=== PATIENT | female | born 1990 | race African-American/Black ===

== ENCOUNTER 2017-09-18 18:54 | Emergency (ER) | payer MEDICAID | END 2017-09-18 19:15 | disposition left against medical advice (07) | LOC: MW.ED 18:54 | DX: Z53.21 Procedure and treatment not carried out due to patient leaving prior to being seen by health care provider (principal) ==

== ENCOUNTER 2017-12-10 10:03 | Emergency (ER) | payer MEDICAID, OTHER ==
[2017-12-10] MEDS ORDERED: Sodium Chloride 0.9% 2.5 ML Syringe FLUSH PRN (10:40)
[2017-12-10] MEDS ORDERED: Ondansetron 4 MG/2 ML SDV IVPUSH ONE (10:40)
[2017-12-10] MEDS ORDERED: Sodium Chloride 0.9% 1,000 ML IV ONE (10:40)
[2017-12-10] MEDS ORDERED: Sodium Chloride 0.9% 10 ML Syringe FLUSH PRN (10:40)
--- NOTE | 2017-12-10 10:52 | EDM.PDOC ---
ED HPI GENERAL MEDICAL PROBLEM - General Chief Complaint: Gastrointestinal Problem Stated Complaint: VOMITTING Time Seen by Provider: 12/10/17 10:41 Source of Information: Reports: Patient History Limitations: Reports: No Limitations - History of Present Illness INITIAL COMMENTS - FREE TEXT/NARRATIVE: HISTORY AND PHYSICAL: []27-year-old female presenting with nausea vomiting and diarrhea for the last 3 days History of Present Illness: []The patient reports that she has had diarrhea several times a day. Her last bouts of diarrhea today 3, vomiting 2. She dropped her Children off at school today and then presented to the emergency department. She feels that she has been running a fever on Sunday 3 days ago. She has not taken any medication for the nausea vomiting and diarrhea. However patient reports that she took plan B on the 11/06/17. Last time she took plan B she had to have a D&C completed. She denies having taken a home test recently. Review of Systems: As per history of present illness and below otherwise all systems reviewed and negative. Past medical history: As per history of present illness and as reviewed below otherwise noncontributory. Surgical history: As per history of present illness and as reviewed below otherwise noncontributory. Social history: No reported history of drug or alcohol abuse. Family history: As per history of present illness and as reviewed below otherwise noncontributory. Physical exam: Alert female who answers questions appropriately in full sentences without any shortness of breath. Skin is warm and dry. HEENT: Atraumatic, normocehpalic, pupils reactive, negative for conjunctival pallor or scleral icterus, mucous membranes dry, throat clear, neck supple, nontender, trachea midline. Lungs: Clear to auscultation, breath sounds equal bilaterally, chest non tender. Heart: S1S2, regular, negative for clicks, rubs, or JVD. Abdomen: Soft, nondistended, nontender. Negative for masses or hepatossplenmegaly. Negative for costovertebral tenderness. Pelvis: Stable nontender. Genitourinary: Deferred. Rectal: Deferred Extremities: Atraumatic, negative for cords or calf pain. Neurovascular unremarkable. Neuro: Awake, alert, oriented. Cranial nerves II through XII unremarkable. Cerebellum unremarkable. Motor and sensory unremarkable throughout. Exam nonfocal. Discussed this case with Noris Thomason, nurse school community relations coordinator. She is given reassurance about this case. If the patient requires further care may follow-up in the clinic in a week call for appointment. Have discussed this condition with the patient that no concerns were voiced by the APPAREL DESIGNER specialist inspector canned food reconditioning. We'll refer her to Noris Martines Diagnostics: [CBC CMP hCG UA] Therapeutics: []IV fluid Zofran Impression: []Viable Nausea vomiting Plan: []Discharge home Prescription for Zofran 4 mg tablets sent to [facility] per phone Definitive disposition and diagnosis as appropriate pending reevaluation and review of above. Onset: Gradual Duration: Day(s): (3) Location: Reports: Abdomen Quality: Reports: Same as Previous Episode Severity: Moderate Improves with: Reports: None Worsens with: Reports: None - Related Data Allergies Allergy/AdvReac Type Severity Reaction Status Date / Time No Known Allergies Allergy Verified 12/10/17 10:14 Home Meds: Home Meds . [No Known Home Meds] 12/10/17 [History] Past Medical History - Past Health History Medical/Surgical History: Denies Medical/Surgical History APPAREL DESIGNER History: Reports: , Spontaneous - Past Surgical History Female Surgical History: Reports: D&C Social & Family History - Family History Family Medical History: Noncontributory - Tobacco Use Smoking Status *Q: Never Smoker Second Hand Smoke Exposure: No - Caffeine Use Caffeine Use: Reports: Coffee, Soda, Tea - Recreational Drug Use Recreational Drug Use: No ED ROS GENERAL - Review of Systems Review Of Systems: ROS reveals no pertinent complaints other than HPI. ED EXAM, GI/ABD - Physical Exam Exam: See Below (see dictation) Course - Vital Signs Last Recorded V/S: Last Vital Signs Temp 36.6 C 12/10/17 12:10 Pulse 96 12/10/17 12:10 Resp 14 12/10/17 12:10 BP 120/57 L 12/10/17 12:10 Pulse Ox 98 12/10/17 12:10 - Orders/Labs/Meds Orders: Active Orders 24 hr Category Date Time Status CULTURE URINE [RM] Stat Lab 12/10/17 10:30 Ordered HCG QUANTITATIVE,SERUM [CHEM] Stat Lab 12/10/17 11:00 Received INFLUENZA A+B AG SCREEN [RM] Stat Lab 12/10/17 10:30 Ordered UA W/MICROSCOPIC [URIN] Stat Lab 12/10/17 10:30 Ordered Sodium Chloride 0.9% [Saline Flush] Med 12/10/17 10:40 Active 10 ml FLUSH ASDIRECTED PRN Sodium Chloride 0.9% [Saline Flush] Med 12/10/17 10:40 Active 2.5 ml FLUSH ASDIRECTED PRN Saline Lock Insert [OM.PC] Stat Oth 12/10/17 10:40 Ordered Medication Orders Sodium Chloride (Saline Flush) 10 ml FLUSH ASDIRECTED PRN PRN Reason: Keep Vein Open Last Admin: 12/10/17 11:03 Dose: 10 ml Sodium Chloride (Saline Flush) 2.5 ml FLUSH ASDIRECTED PRN PRN Reason: Keep Vein Open Last Admin: 12/10/17 11:03 Dose: 2.5 ml Labs: Laboratory Tests 12/10/17 12/10/17 12/10/17 Range/Units 10:30 10:30 11:00 WBC 11.71 H (4.0-11.0) K/uL RBC 4.38 (4.30-5.90) M/uL Hgb 12.2 (12.0-16.0) g/dL Hct 35.9 L (36.0-46.0) % MCV 82.0 (80.0-98.0) fL MCH 27.9 (27.0-32.0) pg MCHC 34.0 (31.0-37.0) g/dL RDW Std Deviation 36.7 (28.0-62.0) fl RDW Coeff of Alyssa 13 (11.0-15.0) % Plt Count 330 (150-400) K/uL MPV 10.40 (7.40-12.00) fL Neut % (Auto) 65.2 (48.0-80.0) % Lymph % (Auto) 26.2 (16.0-40.0) % [place] % (Auto) 7.0 (0.0-15.0) % Eos % (Auto) 1.3 (0.0-7.0) % Baso % (Auto) 0.3 (0.0-1.5) % Neut # (Auto) 7.6 H (1.4-5.7) K/uL Lymph # (Auto) 3.1 H (0.6-2.4) K/uL [place] # (Auto) 0.8 (0.0-0.8) K/uL Eos # (Auto) 0.2 (0.0-0.7) K/uL Baso # (Auto) 0.0 (0.0-0.1) K/uL Sodium (136-145) mmol/L Potassium (3.5-5.1) mmol/L Chloride (98-107) mmol/L Carbon Dioxide (21.0-32.0) mmol/L BUN (7.0-18.0) mg/dL Creatinine (0.6-1.0) mg/dL Est Cr Clr Drug Dosing mL/min Estimated GFR (MDRD) ml/min Glucose (74-106) mg/dL Calcium (8.5-10.1) mg/dL Total Bilirubin (0.2-1.0) mg/dL AST (15-37) IU/L ALT (14-63) IU/L Alkaline Phosphatase (46-116) U/L Total Protein (6.4-8.2) g/dL Albumin (3.4-5.0) g/dL Globulin (2.0-3.5) g/dL Albumin/Globulin Ratio (1.3-2.8) Urine Color YELLOW Urine Appearance CLEAR Urine pH 7.5 (5.0-8.0) Ur Specific [place] 1.010 (1.001-1.035) Urine Protein NEGATIVE (NEGATIVE) mg/dL Urine Glucose (UA) NEGATIVE (NEGATIVE) mg/dL Urine Ketones NEGATIVE (NEGATIVE) mg/dL Urine Occult Blood NEGATIVE (NEGATIVE) Urine Nitrite NEGATIVE (NEGATIVE) Urine Bilirubin NEGATIVE (NEGATIVE) Urine Urobilinogen 1.0 (<2.0) EU/dL Ur Leukocyte Esterase SMALL (NEGATIVE) Urine RBC 0-2 (0-2/HPF) Urine WBC 0-2 (0-5/HPF) Ur Epithelial Cells FEW (NONE-FEW) Urine Bacteria FEW (NEGATIVE) Urine HCG, Qual POSITIVE (NEGATIVE) 12/10/17 Range/Units 11:00 WBC (4.0-11.0) K/uL RBC (4.30-5.90) M/uL Hgb (12.0-16.0) g/dL Hct (36.0-46.0) % MCV (80.0-98.0) fL MCH (27.0-32.0) pg MCHC (31.0-37.0) g/dL RDW Std Deviation (28.0-62.0) fl RDW Coeff of Alyssa (11.0-15.0) % Plt Count (150-400) K/uL MPV (7.40-12.00) fL Neut % (Auto) (48.0-80.0) % Lymph % (Auto) (16.0-40.0) % [place] % (Auto) (0.0-15.0) % Eos % (Auto) (0.0-7.0) % Baso % (Auto) (0.0-1.5) % Neut # (Auto) (1.4-5.7) K/uL Lymph # (Auto) (0.6-2.4) K/uL [place] # (Auto) (0.0-0.8) K/uL Eos # (Auto) (0.0-0.7) K/uL Baso # (Auto) (0.0-0.1) K/uL Sodium 137 (136-145) mmol/L Potassium 3.6 (3.5-5.1) mmol/L Chloride 104 (98-107) mmol/L Carbon Dioxide 26.0 (21.0-32.0) mmol/L BUN 7 (7.0-18.0) mg/dL Creatinine 0.6 (0.6-1.0) mg/dL Est Cr Clr Drug Dosing 123.77 mL/min Estimated GFR (MDRD) > 60.0 ml/min Glucose 83 (74-106) mg/dL Calcium 8.8 (8.5-10.1) mg/dL Total Bilirubin 0.5 (0.2-1.0) mg/dL AST 22 (15-37) IU/L ALT 18 (14-63) IU/L Alkaline Phosphatase 53 (46-116) U/L Total Protein 7.6 (6.4-8.2) g/dL Albumin 3.8 (3.4-5.0) g/dL Globulin 3.8 H (2.0-3.5) g/dL Albumin/Globulin Ratio 1.0 L (1.3-2.8) Urine Color Urine Appearance Urine pH (5.0-8.0) Ur Specific [place] (1.001-1.035) Urine Protein (NEGATIVE) mg/dL Urine Glucose (UA) (NEGATIVE) mg/dL Urine Ketones (NEGATIVE) mg/dL Urine Occult Blood (NEGATIVE) Urine Nitrite (NEGATIVE) Urine Bilirubin (NEGATIVE) Urine Urobilinogen (<2.0) EU/dL Ur Leukocyte Esterase (NEGATIVE) Urine RBC (0-2/HPF) Urine WBC (0-5/HPF) Ur Epithelial Cells (NONE-FEW) Urine Bacteria (NEGATIVE) Urine HCG, Qual (NEGATIVE) Meds: Medications Generic Name Dose Route Start Last Admin Trade Name Freq PRN Reason Stop Dose Admin Sodium Chloride 10 ml 12/10/17 10:40 12/10/17 11:03 Saline Flush FLUSH 10 ml ASDIRECTED PRN Administration Keep Vein Open Sodium Chloride 2.5 ml 12/10/17 10:40 12/10/17 11:03 Saline Flush FLUSH 2.5 ml ASDIRECTED PRN Administration Keep Vein Open Discontinued Medications Generic Name Dose Route Start Last Admin Trade Name Freq PRN Reason Stop Dose Admin Sodium Chloride 1,000 mls @ 999 mls/hr 12/10/17 10:40 12/10/17 11:03 Normal Saline IV 12/10/17 11:40 999 mls/hr STAT ONE Administration Ondansetron HCl 4 mg 12/10/17 10:40 12/10/17 11:03 Zofran IVPUSH 12/10/17 10:41 4 mg ONETIME ONE Administration Departure - Departure Time of Disposition: 13:21 Disposition: Home, Self-Care 01 Condition: Good Clinical Impression: Nausea/vomiting in Qualifiers: Weeks of gestation: less than 8 weeks Qualified Code(s): Z3A.01 - Less than 8 weeks gestation of - Discharge Information Instructions: Nausea, Adult, Nausea and Vomiting, Adult, [id number], First Trimester of , [id number] Referrals: PCP,None [Primary Care Provider] - Forms: ED Department Discharge Additional Instructions: The following information is given to patients seen in the emergency department who are being discharged to home. This information is to outline your options for follow-up care. We provide all patients seen in our emergency department with a follow-up referral. The need for follow-up, as well as the timing and circumstances, are variable depending upon the specifics of your emergency department visit. If you don't have a primary care physician on staff, we will provide you with a referral. We always advise you to contact your personal physician following an emergency department visit to inform them of the circumstance of the visit and for follow-up with them and/or the need for any referrals to a consulting specialist. The emergency department will also refer you to a specialist when appropriate. This referral assures that you have the opportunity for followup care with a specialist. All of these measure are taken in an effort to provide you with optimal care, which includes your followup. Under all circumstances we always encourage you to contact your private physician who remains a resource for coordinating your care. When calling for followup care, please make the office aware that this follow-up is from your recent emergency room visit. If for any reason you are refused follow-up, please contact the [facility] emergency department at and asked to speak to the emergency department charge nurse. Given found to have a viable estimated gestational age by ultrasound is 5 weeks and 6 days EDC August 05, 2018 May follow-up with APPAREL DESIGNER of your choice Phone consultation was with Noris Thomason nurse school community relations coordinator My women's clinic [facility] [address] [place] [address] - My Orders Last 24 Hours: My Active Orders 12/10/17 10:30 CULTURE URINE [RM] Stat INFLUENZA A+B AG SCREEN [RM] Stat UA W/MICROSCOPIC [URIN] Stat 12/10/17 10:40 Sodium Chloride 0.9% [Saline Flush] 10 ml FLUSH ASDIRECTED PRN Sodium Chloride 0.9% [Saline Flush] 2.5 ml FLUSH ASDIRECTED PRN Saline Lock Insert [OM.PC] Stat 12/10/17 11:00 HCG QUANTITATIVE,SERUM [CHEM] Stat - Assessment/Plan Last 24 Hours: My Active Orders 12/10/17 10:30 CULTURE URINE [RM] Stat INFLUENZA A+B AG SCREEN [RM] Stat UA W/MICROSCOPIC [URIN] Stat 12/10/17 10:40 Sodium Chloride 0.9% [Saline Flush] 10 ml FLUSH ASDIRECTED PRN Sodium Chloride 0.9% [Saline Flush] 2.5 ml FLUSH ASDIRECTED PRN Saline Lock Insert [OM.PC] Stat 12/10/17 11:00 HCG QUANTITATIVE,SERUM [CHEM] Stat
[2017-12-10 11:50] LABS: CHLORIDE,CL 104 mmol/L (98-107); SODIUM,NA 137 mmol/L (136-145)
--- NOTE | 2017-12-10 12:37 | US ---
EXAMINATION: Transvaginal pelvic ultrasound HISTORY: Bleeding COMPARISON: None TECHNIQUE: Grayscale, color Doppler, and M-mode imaging obtained. FINDINGS: The uterus is normal in size, contour, and echogenicity. There is a small intrauterine gest ational sac identified. Yolk sac and pole noted. Early cardiac activity identified within the f etus. [place]-rump length measures 2.6 mm and the mean sac diameter is 1.6 cm. Estimated gestational ag e by ultrasound is 5 weeks and 6 days with an estimated date of delivery at 08/06/2018. Both the left and right ovaries otherwise appear normal. Normal color Doppler flow bilaterally. IMPRESSION: 1. Early intrauterine gestational sac noted with a pole and yolk sac. Early cardiac activity no drew.
[2017-12-10 13:38] VITALS: BP 99/46
== END 2017-12-10 13:39 | disposition home or self-care (01) ==
LOC: MW.ED 10:03
DX: O21.9 Vomiting of pregnancy, unspecified (principal); Z3A.01 Less than 8 weeks gestation of pregnancy
CPT/HCPCS: 36415; 76801; 80053; 81001; 81025; 84702; 85025; 87086; 87804; 96361; 96374; 99284; J2405; J7040; 99283

== ENCOUNTER 2017-12-16 07:31 | Emergency (ER) | payer SELFPAY ==
[2017-12-16] MEDS ORDERED: Sodium Chloride 0.9% 1,000 ML IV ONE (07:44)
[2017-12-16] MEDS ORDERED: Ondansetron 4 MG/2 ML SDV IVPUSH ONE (07:44)
--- NOTE | 2017-12-16 07:44 | EDM.PDOC ---
ED HPI GENERAL MEDICAL PROBLEM - General Chief Complaint: UNIT AIDE Problem Stated Complaint: BLEEDING/6 WEEKS Time Seen by Provider: 12/16/17 07:43 Source of Information: Reports: Patient - History of Present Illness INITIAL COMMENTS - FREE TEXT/NARRATIVE: HISTORY AND PHYSICAL: History of present illness: [Patient presents with vaginal bleeding/spotting in no fever nausea vomiting chills sweats no low back pain vaginal fluid leakage or discharge ] Review of systems: As per history of present illness and below otherwise all systems reviewed and negative. Past medical history: As per history of present illness and as reviewed below otherwise noncontributory. Surgical history: As per history of present illness and as reviewed below otherwise noncontributory. Social history: No reported history of drug or alcohol abuse. Family history: As per history of present illness and as reviewed below otherwise noncontributory. Physical exam: HEENT: Atraumatic, normocephalic, pupils reactive, negative for conjunctival pallor or scleral icterus, mucous membranes moist, throat clear, neck supple, nontender, trachea midline. Lungs: Clear to auscultation, breath sounds equal bilaterally, chest nontender. Heart: S1S2, regular, negative for clicks, rubs, or JVD. Abdomen: Soft, nondistended, nontender. Negative for masses or hepatosplenomegaly. Negative for costovertebral tenderness. Pelvis: Stable nontender. Genitourinary: No blood in the vaginal vault cervix is closed Rectal: Deferred. Extremities: Atraumatic, negative for cords or calf pain. Neurovascular unremarkable. Neuro: Awake, alert, oriented. Cranial nerves II through XII unremarkable. Cerebellum unremarkable. Motor and sensory unremarkable throughout. Exam nonfocal. Diagnostics: [CBC CMP UA hCG ABO type INR Ultrasound OB performed on 12/10/2017 on file with IUP noted Therapeutics: [1 L normal saline bolus ]Zofran 8 mg IV Macrobid Follow-up with OB next week Impression: [Threatened UTI 6 and 4/7 weeks weeks IUP by ultrasound on 12/10/2017 EDC 08/06/2018 by ultrasound ABO type -- O positive Cervix closed Definitive disposition and diagnosis as appropriate pending reevaluation and review of above. Bilateral Lower Abdomen Pain Score (Numeric/FACES): 8 - Related Data Allergies Allergy/AdvReac Type Severity Reaction Status Date / Time No Known Allergies Allergy Verified 12/10/17 10:14 Home Meds: Home Meds . [No Known Home Meds] 12/10/17 [History] Past Medical History - Past Health History Medical/Surgical History: Denies Medical/Surgical History UNIT AIDE History: Reports: , Spontaneous - Past Surgical History Female Surgical History: Reports: D&C Social & Family History - Family History Family Medical History: Noncontributory - Tobacco Use Smoking Status *Q: Never Smoker Second Hand Smoke Exposure: No - Caffeine Use Caffeine Use: Reports: Coffee, Soda, Tea - Recreational Drug Use Recreational Drug Use: No ED ROS GENERAL - Review of Systems Review Of Systems: ROS reveals no pertinent complaints other than HPI. ED EXAM, GENERAL - Physical Exam Exam: See Below Course - Vital Signs Last Recorded V/S: Last Vital Signs Temp 97.8 F 12/16/17 07:37 Pulse 95 12/16/17 07:37 Resp 18 12/16/17 07:37 BP 110/70 12/16/17 07:37 Pulse Ox 100 12/16/17 07:37 - Orders/Labs/Meds Orders: Active Orders 24 hr Category Date Time Status CULTURE URINE [RM] Stat Lab 12/16/17 09:00 Ordered UA W/MICROSCOPIC [URIN] Stat Lab 12/16/17 07:41 Ordered Labs: Laboratory Tests 12/16/17 12/16/17 12/16/17 Range/Units 07:41 07:47 07:47 WBC 12.14 H (4.0-11.0) K/uL RBC 4.33 (4.30-5.90) M/uL Hgb 12.2 (12.0-16.0) g/dL Hct 34.9 L (36.0-46.0) % MCV 80.6 (80.0-98.0) fL MCH 28.2 (27.0-32.0) pg MCHC 35.0 (31.0-37.0) g/dL RDW Std Deviation 37.6 (28.0-62.0) fl RDW Coeff of Alyssa 13 (11.0-15.0) % Plt Count 352 (150-400) K/uL MPV 10.10 (7.40-12.00) fL Neut % (Auto) 69.5 (48.0-80.0) % Lymph % (Auto) 22.2 (16.0-40.0) % [place] % (Auto) 6.8 (0.0-15.0) % Eos % (Auto) 0.9 (0.0-7.0) % Baso % (Auto) 0.6 (0.0-1.5) % Neut # (Auto) 8.4 H (1.4-5.7) K/uL Lymph # (Auto) 2.7 H (0.6-2.4) K/uL [place] # (Auto) 0.8 (0.0-0.8) K/uL Eos # (Auto) 0.1 (0.0-0.7) K/uL Baso # (Auto) 0.1 (0.0-0.1) K/uL Nucleated RBC % 0.0 /100WBC Nucleated RBCs # 0 K/uL INR Sodium 134 L (136-145) mmol/L Potassium 3.5 (3.5-5.1) mmol/L Chloride 98 (98-107) mmol/L Carbon Dioxide 26.1 (21.0-32.0) mmol/L BUN 11 (7.0-18.0) mg/dL Creatinine 0.7 (0.6-1.0) mg/dL Est Cr Clr Drug Dosing 106.09 mL/min Estimated GFR (MDRD) > 60.0 ml/min Glucose 86 (74-106) mg/dL Calcium 9.0 (8.5-10.1) mg/dL Total Bilirubin 0.5 (0.2-1.0) mg/dL AST 13 L (15-37) IU/L ALT 14 (14-63) IU/L Alkaline Phosphatase 55 (46-116) U/L Total Protein 7.5 (6.4-8.2) g/dL Albumin 3.9 (3.4-5.0) g/dL Globulin 3.6 H (2.0-3.5) g/dL Albumin/Globulin Ratio 1.1 L (1.3-2.8) HCG, Quant 63007.0 mIU/mL Urine Color YELLOW Urine Appearance CLEAR Urine pH 6.0 (5.0-8.0) Ur Specific [place] >= 1.030 (1.001-1.035) Urine Protein TRACE (NEGATIVE) mg/dL Urine Glucose (UA) NEGATIVE (NEGATIVE) mg/dL Urine Ketones 15 H (NEGATIVE) mg/dL Urine Occult Blood SMALL H (NEGATIVE) Urine Nitrite NEGATIVE (NEGATIVE) Urine Bilirubin SMALL H (NEGATIVE) Urine Ictotest NEGATIVE Urine Urobilinogen 0.2 (<2.0) EU/dL Ur Leukocyte Esterase SMALL (NEGATIVE) Urine RBC 1-3 (0-2/HPF) Urine WBC 18-20 (0-5/HPF) Ur Epithelial Cells MODERATE (NONE-FEW) Urine Bacteria 1+ H (NEGATIVE) Urine Mucus MODERATE (NONE-MOD) Blood Type 12/16/17 12/16/17 Range/Units 07:47 07:47 WBC (4.0-11.0) K/uL RBC (4.30-5.90) M/uL Hgb (12.0-16.0) g/dL Hct (36.0-46.0) % MCV (80.0-98.0) fL MCH (27.0-32.0) pg MCHC (31.0-37.0) g/dL RDW Std Deviation (28.0-62.0) fl RDW Coeff of Alyssa (11.0-15.0) % Plt Count (150-400) K/uL MPV (7.40-12.00) fL Neut % (Auto) (48.0-80.0) % Lymph % (Auto) (16.0-40.0) % [place] % (Auto) (0.0-15.0) % Eos % (Auto) (0.0-7.0) % Baso % (Auto) (0.0-1.5) % Neut # (Auto) (1.4-5.7) K/uL Lymph # (Auto) (0.6-2.4) K/uL [place] # (Auto) (0.0-0.8) K/uL Eos # (Auto) (0.0-0.7) K/uL Baso # (Auto) (0.0-0.1) K/uL Nucleated RBC % /100WBC Nucleated RBCs # K/uL INR 0.96 Sodium (136-145) mmol/L Potassium (3.5-5.1) mmol/L Chloride (98-107) mmol/L Carbon Dioxide (21.0-32.0) mmol/L BUN (7.0-18.0) mg/dL Creatinine (0.6-1.0) mg/dL Est Cr Clr Drug Dosing mL/min Estimated GFR (MDRD) ml/min Glucose (74-106) mg/dL Calcium (8.5-10.1) mg/dL Total Bilirubin (0.2-1.0) mg/dL AST (15-37) IU/L ALT (14-63) IU/L Alkaline Phosphatase (46-116) U/L Total Protein (6.4-8.2) g/dL Albumin (3.4-5.0) g/dL Globulin (2.0-3.5) g/dL Albumin/Globulin Ratio (1.3-2.8) HCG, Quant mIU/mL Urine Color Urine Appearance Urine pH (5.0-8.0) Ur Specific [place] (1.001-1.035) Urine Protein (NEGATIVE) mg/dL Urine Glucose (UA) (NEGATIVE) mg/dL Urine Ketones (NEGATIVE) mg/dL Urine Occult Blood (NEGATIVE) Urine Nitrite (NEGATIVE) Urine Bilirubin (NEGATIVE) Urine Ictotest Urine Urobilinogen (<2.0) EU/dL Ur Leukocyte Esterase (NEGATIVE) Urine RBC (0-2/HPF) Urine WBC (0-5/HPF) Ur Epithelial Cells (NONE-FEW) Urine Bacteria (NEGATIVE) Urine Mucus (NONE-MOD) Blood Type O POSITIVE Meds: Medications Discontinued Medications Generic Name Dose Route Start Last Admin Trade Name Freq PRN Reason Stop Dose Admin Sodium Chloride 1,000 mls @ 999 mls/hr 12/16/17 07:44 12/16/17 08:02 Normal Saline IV 12/16/17 08:44 999 mls/hr STAT ONE Administration Ondansetron HCl 8 mg 12/16/17 07:44 12/16/17 08:01 Zofran IVPUSH 12/16/17 07:45 8 mg ONETIME ONE Administration Departure - Departure Time of Disposition: 09:21 Disposition: Home, Self-Care 01 Condition: Good Clinical Impression: Threatened , UTI (urinary tract infection) - Discharge Information Referrals: PCP,None [Primary Care Provider] - Forms: ED Department Discharge Additional Instructions: Medication as prescribed Continue vitamins Return if symptoms persist or worsen ER referral for OB follow-up and establish care next week [facility] [address] [address] The following information is given to patients seen in the emergency department who are being discharged to home. This information is to outline your options for follow-up care. We provide all patients seen in our emergency department with a follow-up referral. The need for follow-up, as well as the timing and circumstances, are variable depending upon the specifics of your emergency department visit. If you don't have a primary care physician on staff, we will provide you with a referral. We always advise you to contact your personal physician following an emergency department visit to inform them of the circumstance of the visit and for follow-up with them and/or the need for any referrals to a consulting specialist. The emergency department will also refer you to a specialist when appropriate. This referral assures that you have the opportunity for follow-up care with a specialist. All of these measure are taken in an effort to provide you with optimal care, which includes your follow-up. Under all circumstances we always encourage you to contact your private physician who remains a resource for coordinating your care. When calling for follow-up care, please make the office aware that this follow-up is from your recent emergency room visit. If for any reason you are refused follow-up, please contact the [facility] emergency department at and asked to speak to the emergency department charge nurse. l - My Orders Last 24 Hours: My Active Orders 12/16/17 07:41 UA W/MICROSCOPIC [URIN] Stat 12/16/17 09:00 CULTURE URINE [RM] Stat - Assessment/Plan Last 24 Hours: My Active Orders 12/16/17 07:41 UA W/MICROSCOPIC [URIN] Stat 12/16/17 09:00 CULTURE URINE [RM] Stat
[2017-12-16 09:02] LABS: CHLORIDE,CL 98 mmol/L (98-107); SODIUM,NA 134 mmol/L (136-145)
[2017-12-16 11:07] VITALS: BP 105/62
== END 2017-12-16 11:13 | disposition home or self-care (01) ==
LOC: MW.ED 07:31
DX: O20.0 Threatened abortion (principal); O23.41 Unspecified infection of urinary tract in pregnancy, first trimester; Z3A.01 Less than 8 weeks gestation of pregnancy
CPT/HCPCS: 36415; 80053; 81001; 84702; 85025; 85610; 86900; 86901; 87086; 96361; 96374; 99284; J2405; J7040

== ENCOUNTER 2017-12-20 16:25 | Emergency (ER) | payer MEDICAID ==
--- NOTE | 2017-12-20 17:05 | EDM.PDOC ---
ED HPI GENERAL MEDICAL PROBLEM - General Chief Complaint: RECHARGER Problem Stated Complaint: PT BLEEDING AND 7WKS Time Seen by Provider: 12/20/17 16:44 Source of Information: Reports: Patient History Limitations: Reports: No Limitations - History of Present Illness INITIAL COMMENTS - FREE TEXT/NARRATIVE: HISTORY AND PHYSICAL: History of present illness: Patient is a 27-year-old female who presents to the emergency room today with complaints of vaginal bleeding, low back cramping, and nausea during . Reports that for the past week she has had increased bleeding, cramping and low back pain. Was seen in our ED a week ago with similar complaints and was concerned that she had threatened miscarriage. Review of systems: As per history of present illness and below otherwise all systems reviewed and negative. Past medical history: As per history of present illness and as reviewed below otherwise noncontributory. Surgical history: As per history of present illness and as reviewed below otherwise noncontributory. Social history: No reported history of drug or alcohol abuse. Family history: As per history of present illness and as reviewed below otherwise noncontributory. Physical exam: General: Well-developed and well-nourished 27-year-old -[place] female. Alert and oriented. Nontoxic appearing and in no acute distress. HEENT: Atraumatic, normocephalic, pupils equal and reactive bilaterally, negative for conjunctival pallor or scleral icterus, mucous membranes moist, throat clear, neck supple, nontender, trachea midline. No drooling or trismus noted. No meningeal signs Lungs: Clear to auscultation, breath sounds equal bilaterally, chest nontender. Heart: S1S2, regular rate and rhythm without overt murmur Abdomen: Soft, nondistended, mild low abdominal tenderness with palpation. Negative for masses or hepatosplenomegaly. Negative for costovertebral tenderness. Pelvis: Stable nontender. Genitourinary: This was done with a atm mechanic at the bedside. A manual exam was done and the cervix is closed. Patient tolerated well. There was no blood noted on the glove. Rectal: Deferred. Skin: Intact, warm, dry. No lesions or rashes noted. Extremities: Atraumatic, negative for cords or calf pain. Neurovascular unremarkable. Neuro: Awake, alert, oriented. Cranial nerves II through XII unremarkable. Cerebellum unremarkable. Motor and sensory unremarkable throughout. Exam nonfocal. Notes: 12/10/2017: Patient had taken Plan B on 11/06/2017 to prevent . She states the last time she had taken Plan B she needed a D&C. Patient had a confirmed , viable IUP via ultrasound. Patient was reevaluated in our emergency room on 12/17/2007 for vaginal bleeding. During this time she was evaluated and informed she may be having a miscarriage and encouraged to follow up with Noris Thomason. Patient states that she has had increased bleeding and cramping since her last ER visit. 12/16/2017 Labs: ABO Type - O positive, HCG Quant 61,891 12/20/2017: OB ultrasound shows no heart motion which is consistent with a failed early . There is a trace amount of subchorionic hemorrhage noted. Current HCG Quant 101,803. Cervix is closed upon my vaginal exam. Dr Hernandez was called and is agreeable to seeing her tomorrow for follow up and re- evaluation. VSS. Patient will be discharged to home with education. Diagnostics: CBC, CMP, Quantative HCG, UA, OB U/S Therapeutics: [] Impression: Threatened Miscarriage Plan: 1. Pelvic rest until cleared by your OBGYN (no tampons, intercourse, etc...) 2. Tylenol as needed for pain management. 3. Dr Carter was called and he is aware of your case, and you can call to set up an appointment to be seen tomorrow or Sunday. Return to the ED as needed and as discussed. Definitive disposition and diagnosis as appropriate pending reevaluation and review of above. - Related Data Allergies Allergy/AdvReac Type Severity Reaction Status Date / Time No Known Allergies Allergy Verified 12/20/17 16:43 Home Meds: Home Meds Ondansetron [Zofran ODT] 4 mg PO ASDIRECTED PRN 12/20/17 [History] Past Medical History - Past Health History Medical/Surgical History: Denies Medical/Surgical History RECHARGER History: Reports: , Spontaneous - Past Surgical History Female Surgical History: Reports: D&C Social & Family History - Family History Family Medical History: Noncontributory - Tobacco Use Smoking Status *Q: Never Smoker Second Hand Smoke Exposure: No - Caffeine Use Caffeine Use: Reports: None - Recreational Drug Use Recreational Drug Use: No ED ROS GENERAL - Review of Systems Review Of Systems: ROS reveals no pertinent complaints other than HPI. ED EXAM - Physical Exam Exam: See Below (See dictation) Course - Vital Signs Last Recorded V/S: Last Vital Signs Temp 97.8 F 12/20/17 16:39 Pulse 109 H 12/20/17 16:39 Resp 20 12/20/17 16:39 BP 99/56 L 12/20/17 16:39 Pulse Ox 99 12/20/17 16:39 - Orders/Labs/Meds Orders: Active Orders 24 hr Category Date Time Status OB Transvaginal [US] Stat Exams 12/20/17 16:51 Taken UA W/MICROSCOPIC [URIN] Stat Lab 12/20/17 16:44 Ordered Labs: Laboratory Tests 12/20/17 12/20/17 12/20/17 Range/Units 16:59 16:59 16:59 WBC 13.79 H (4.0-11.0) K/uL RBC 4.66 (4.30-5.90) M/uL Hgb 13.1 (12.0-16.0) g/dL Hct 38.0 (36.0-46.0) % MCV 81.5 (80.0-98.0) fL MCH 28.1 (27.0-32.0) pg MCHC 34.5 (31.0-37.0) g/dL RDW Std Deviation 39.5 (28.0-62.0) fl RDW Coeff of Alyssa 13 (11.0-15.0) % Plt Count 348 (150-400) K/uL MPV 9.60 (7.40-12.00) fL Neut % (Auto) 67.3 (48.0-80.0) % Lymph % (Auto) 26.4 (16.0-40.0) % Churchill % (Auto) 5.1 (0.0-15.0) % Eos % (Auto) 0.9 (0.0-7.0) % Baso % (Auto) 0.3 (0.0-1.5) % Neut # (Auto) 9.3 H (1.4-5.7) K/uL Lymph # (Auto) 3.6 H (0.6-2.4) K/uL Churchill # (Auto) 0.7 (0.0-0.8) K/uL Eos # (Auto) 0.1 (0.0-0.7) K/uL Baso # (Auto) 0.0 (0.0-0.1) K/uL Nucleated RBC % 0.0 /100WBC Nucleated RBCs # 0 K/uL Sodium 136 (136-145) mmol/L Potassium 3.7 (3.5-5.1) mmol/L Chloride 101 (98-107) mmol/L Carbon Dioxide 25.4 (21.0-32.0) mmol/L BUN 6 L (7.0-18.0) mg/dL Creatinine 0.7 (0.6-1.0) mg/dL Est Cr Clr Drug Dosing TNP Estimated GFR (MDRD) > 60.0 ml/min Glucose 90 (74-106) mg/dL Calcium 9.4 (8.5-10.1) mg/dL Total Bilirubin 0.5 (0.2-1.0) mg/dL AST 18 (15-37) IU/L ALT 16 (14-63) IU/L Alkaline Phosphatase 62 (46-116) U/L Total Protein 8.0 (6.4-8.2) g/dL Albumin 4.0 (3.4-5.0) g/dL Globulin 4.0 H (2.0-3.5) g/dL Albumin/Globulin Ratio 1.0 L (1.3-2.8) HCG, Quant 169693.0 mIU/mL Departure - Departure Time of Disposition: 19:08 Disposition: Home, Self-Care 01 Clinical Impression: Threatened miscarriage in early - Discharge Information Instructions: Threatened Miscarriage, [id number] Referrals: PCP,None [Primary Care Provider] - Forms: ED Department Discharge Additional Instructions: The following information is given to patients seen in the emergency department who are being discharged to home. This information is to outline your options for follow-up care. We provide all patients seen in our emergency department with a follow-up referral. The need for follow-up, as well as the timing and circumstances, are variable depending upon the specifics of your emergency department visit. If you don't have a primary care physician on staff, we will provide you with a referral. We always advise you to contact your personal physician following an emergency department visit to inform them of the circumstance of the visit and for follow-up with them and/or the need for any referrals to a consulting specialist. The emergency department will also refer you to a specialist when appropriate. This referral assures that you have the opportunity for follow-up care with a specialist. All of these measure are taken in an effort to provide you with optimal care, which includes your follow-up. Under all circumstances we always encourage you to contact your private physician who remains a resource for coordinating your care. When calling for follow-up care, please make the office aware that this follow-up is from your recent emergency room visit. If for any reason you are refused follow-up, please contact the [facility] Emergency Department at and asked to speak to the emergency department charge nurse. [facility] OB Care: Dr Carter or Noris Klein [address] [place] [id number] 1. Pelvic rest until cleared by your OBGYN (no tampons, intercourse, etc...) 2. Tylenol as needed for pain management. 3. Dr Carter was called and he is aware of your case, and you can call to set up an appointment to be seen tomorrow or Sunday. Return to the ED as needed and as discussed. - My Orders Last 24 Hours: My Active Orders 12/20/17 16:44 UA W/MICROSCOPIC [URIN] Stat 12/20/17 16:51 OB Transvaginal [US] Stat - Assessment/Plan Last 24 Hours: My Active Orders 12/20/17 16:44 UA W/MICROSCOPIC [URIN] Stat 12/20/17 16:51 OB Transvaginal [US] Stat
[2017-12-20 17:42] LABS: CHLORIDE,CL 101 mmol/L (98-107); SODIUM,NA 136 mmol/L (136-145)
[2017-12-20 19:24] VITALS: BP 99/61
--- NOTE | 2017-12-21 14:27 | US ---
EXAM DATE: 12/20/17 PATIENT'S AGE: 27 Patient: GONZALEZ HUERTA Facility: [place], [place] Site . Site : 1990 Study: OB Pelvis [id number]/[id number] 5:39:05 PM Ordering Physician: Doctor Gonzalez Final Report: INDICATION: Vaginal spotting with pelvic cramping TECHNIQUE: Ultrasound OB pelvis transvaginal. Real time casey scale imaging of the pelvis was performed. COMPARISON: 12/10/2017 FINDINGS: Gestational Sac: Sonographic imaging demonstrates a single intrauterine gestation with a normal appearance. A trace subchorionic hemorrhage is noted. The amount of fluid within the sac appears appropriate for gestational age. Fetus: No heart motion is identified by the media marketing manager. The embryo`s crown rump length measurement of 0.6 mm corresponds to a gestational age of 6 weeks, 4 days. There is a normal appearing yolk sac. There are no gross abnormalities noted within the embryo at this early state of development. Placenta: The placenta has not yet developed. Pelvis: The visualized cervix is closed. The visualized myometrium appears normal. The ovaries are of normal size. No significant ascites noted. IMPRESSION: 1. No heart motion is identified by the media marketing manager. Findings are consistent with failed early . 2. A trace subchorionic hemorrhage is noted. Dictated by Raul Gonsalez MD @ 12/20/2017 6:16:50 PM Dictated by: Raul Gonsalez MD @ 12/20/2017 18:17:04 (Electronic Signature) MTDD
== END 2017-12-20 19:28 | disposition home or self-care (01) ==
LOC: MW.ED 16:25
DX: O20.0 Threatened abortion (principal); Z3A.01 Less than 8 weeks gestation of pregnancy
CPT/HCPCS: 36415; 76817; 76817-26; 80053; 84702; 85025; 99283; 99284-25

== ENCOUNTER 2017-12-25 09:09 | Day surgery (SDC) | payer MEDICAID ==
[~2017-12-25 09:09] MED LIST: Lactated Ringers 1,000 ML IV SCH
[2017-12-25] MEDS ORDERED: Methylergonovine 0.2 MG/1 ML Amp ONE (10:16)
[2017-12-25] MEDS ORDERED: Misoprostol 200 MCG Tab ONE (10:16)
[2017-12-25] MEDS ORDERED: Lidocaine 2% 5 ML SDV ONE (10:20)
[2017-12-25] MEDS ORDERED: fentaNYL 100 MCG/2 ML SDV ONE (10:21)
[2017-12-25] MEDS ORDERED: Propofol 200 MG/20 ML SDV ONE (10:21)
[2017-12-25] MEDS ORDERED: Midazolam 1 MG/ML 2 ML SDV ONE (10:21)
--- NOTE | 2017-12-25 10:30 | PCM.PREANE ---
Preanesthetic Assessment - Anesthesia/Transfusion/Family Hx Anesthesia History: Prior Anesthesia Without Reaction Family History of Anesthesia Reaction: No Transfusion History: No Prior Transfusion(s) Intubation History: Unknown - Review of Systems General: No Symptoms Pulmonary: No Symptoms Cardiovascular: No Symptoms Gastrointestinal: No Symptoms Neurological: No Symptoms Other: Reports: None - Physical Assessment Height: 1.63 m Weight: 64.864 kg ASA Class: 2 Mental Status: Alert & Oriented x3 Airway Class: Mallampati = 2 Dentition: Reports: Normal Dentition Thyro-Mental Finger Breadths: 3 Mouth Opening Finger Breadths: 3 ROM/Head Extension: Full Lungs: Clear to Auscultation, Normal Respiratory Effort Cardiovascular: Regular Rate, Regular Rhythm - Lab Values: Laboratory Last Values Hgb 13.7 g/dL (12.0-16.0) 12/25/17 09:24 Hct 38.6 % (36.0-46.0) 12/25/17 09:24 - Allergies Allergies/Adverse Reactions: Allergies Allergy/AdvReac Type Severity Reaction Status Date / Time No Known Allergies Allergy Verified 12/24/17 12:20 - Blood Blood Available: No - Anesthesia Plan Pre-Op Medication Ordered: None - Acknowledgements Anesthesia Type Planned: General Anesthesia Pt an Appropriate Candidate for the Planned Anesthesia: Yes Alternatives and Risks of Anesthesia Discussed w Pt/Guardian: Yes Pt/Guardian Understands and Agrees with Anesthesia Plan: Yes PreAnesthesia Questionnaire - Past Health History Medical/Surgical History: Denies 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: , 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 Hematologic History: Reports: Anemia - Past Surgical History Head Surgeries/Procedures: Reports: None Female Surgical History: Reports: D&C (x2) - SUBSTANCE USE Smoking Status *Q: Never Smoker Tobacco Use Within Last Twelve Months: No Second Hand Smoke Exposure: No Recreational Drug Use History: No - HOME MEDS Home Medications: Home Meds Ondansetron [Zofran ODT] 4 mg PO ASDIRECTED PRN 12/20/17 [History] - CURRENT (IN HOUSE) MEDS Current Meds: Current Medications Lactated Ringer's (Ringers, Lactated) 1,000 mls @ 100 mls/hr IV ASDIRECTED ARELY Discontinued Medications Fentanyl (Sublimaze) Confirm Administered Dose 200 mcg .ROUTE .STK-MED ONE Stop: 12/25/17 10:22 Lidocaine (Xylocaine-Mpf 2%) Confirm Administered Dose 10 ml .ROUTE .STK-MED ONE Stop: 12/25/17 10:21 Methylergonovine Maleate (Methergine) Confirm Administered Dose 0.2 mg .ROUTE .STK-MED ONE Stop: 12/25/17 10:17 Midazolam HCl (Versed 1 Mg/Ml) Confirm Administered Dose 2 mg .ROUTE .STK-MED ONE Stop: 12/25/17 10:22 Misoprostol (Cytotec) Confirm Administered Dose 1,000 mcg .ROUTE .STK-MED ONE Stop: 12/25/17 10:17 Propofol (Diprivan 20 Ml) Confirm Administered Dose 400 mg .ROUTE .STK-MED ONE Stop: 12/25/17 10:22
[2017-12-25] MEDS ORDERED: Succinylcholine 200 MG/10 ML MDV ONE (13:19)
[2017-12-25] MEDS ORDERED: Acetaminophen/oxyCODONE 325-5 MG Tab PO PRN ×2 (13:31)
[2017-12-25] MEDS ORDERED: Ketorolac 30 MG/ML SDV IVPUSH ONE (13:31)
[2017-12-25] MEDS ORDERED: Promethazine 25 MG/ML SDV IM PRN (13:31)
[2017-12-25] MEDS ORDERED: Ketorolac 30 MG/ML SDV IVPUSH PRN (13:31)
[2017-12-25] MEDS ORDERED: Ondansetron 4 MG/2 ML SDV IVPUSH PRN (13:31)
[2017-12-25] MEDS ORDERED: Morphine 4 MG/ML Syringe IVPUSH PRN (13:31)
--- NOTE | 2017-12-25 13:34 | PCM.OPNOTE ---
- General Post-Op/Procedure Note Date of Surgery/Procedure: 12/25/17 Operative Procedure(s): D&E Findings: POC Pre Op Diagnosis: Blighted ovum Post-Op Diagnosis: Same Primary Surgeon: Marc Carter EBL in mLs: 100 Complications: None Condition: Good Free Text/Narrative:: Intake & Output 12/24/17 12/25/17 12/25/17 22:59 06:59 14:59 Output Total 100 Balance -100
--- NOTE | 2017-12-25 13:35 | PCM.DCSUM1 ---
Discharge Summary - Discharge Data Discharge Date: 12/25/17 Discharge Disposition: Home, Self-Care 01 Condition: Good - Patient Summary/Data Operative Procedure(s) Performed: D&E - Patient Instructions Diet: Usual Diet as Tolerated Activity: As Tolerated Driving: Do Not Drive Showering/Bathing: May Shower Notify Provider of: Fever, Increased Pain, Nausea and/or Vomiting - Discharge Plan Home Medications: Home Meds Ondansetron [Zofran ODT] 4 mg PO ASDIRECTED PRN 12/20/17 [History] - General Info Date of Service: 12/25/17 Functional Status: Reports: Pain Controlled - Review of Systems General: Reports: No Symptoms HEENT: Reports: No Symptoms Pulmonary: Reports: No Symptoms Cardiovascular: Reports: No Symptoms Gastrointestinal: Reports: No Symptoms Genitourinary: Reports: No Symptoms Musculoskeletal: Reports: No Symptoms Skin: Reports: No Symptoms Neurological: Reports: No Symptoms Psychiatric: Reports: No Symptoms - Patient Data Vitals - Most Recent: Last Vital Signs Temp 37.2 C 12/25/17 10:34 Pulse 97 12/25/17 10:34 Resp 16 12/25/17 10:34 BP 127/74 12/25/17 10:34 Pulse Ox 98 12/25/17 10:34 Weight - Most Recent: 64.864 kg I&O - Last 24 hours: Intake & Output 12/24/17 12/25/17 12/25/17 22:59 06:59 14:59 Output Total 100 Balance -100 Lab Results - Last 24 hrs: Laboratory Results - last 24 hr 12/25/17 12/25/17 Range/Units 09:24 09:24 Hgb 13.7 (12.0-16.0) g/dL Hct 38.6 (36.0-46.0) % Blood Type O POSITIVE Antibody Screen NEGATIVE Med Orders - Current: Current Medications Lactated Ringer's (Ringers, Lactated) 1,000 mls @ 100 mls/hr IV ASDIRECTED ARELY Last Admin: 12/25/17 10:33 Dose: 100 mls/hr Ketorolac Tromethamine (Toradol) 30 mg IVPUSH ONETIME ONE Stop: 12/25/17 13:32 Ketorolac Tromethamine (Toradol) 30 mg IVPUSH Q6H PRN PRN Reason: Pain (severe 7-10) Stop: 12/30/17 13:31 Morphine Sulfate (Morphine) 4 mg IVPUSH Q2H PRN PRN Reason: Pain (severe 7-10) Ondansetron HCl (Zofran) 4 mg IVPUSH Q6H PRN PRN Reason: Nausea/Vomiting Oxycodone/Acetaminophen (Percocet 325-5 Mg) 1 tab PO Q4H PRN PRN Reason: Pain (moderate 4-6) Oxycodone/Acetaminophen (Percocet 325-5 Mg) 2 tab PO Q4H PRN PRN Reason: Pain (moderate 4-6) Promethazine HCl (Phenergan) 25 mg IM Q6H PRN PRN Reason: Nausea/Vomiting Discontinued Medications Fentanyl (Sublimaze) Confirm Administered Dose 200 mcg .ROUTE .STK-MED ONE Stop: 12/25/17 10:22 Lidocaine (Xylocaine-Mpf 2%) Confirm Administered Dose 10 ml .ROUTE .STK-MED ONE Stop: 12/25/17 10:21 Methylergonovine Maleate (Methergine) Confirm Administered Dose 0.2 mg .ROUTE .STK-MED ONE Stop: 12/25/17 10:17 Midazolam HCl (Versed 1 Mg/Ml) Confirm Administered Dose 2 mg .ROUTE .STK-MED ONE Stop: 12/25/17 10:22 Misoprostol (Cytotec) Confirm Administered Dose 1,000 mcg .ROUTE .STK-MED ONE Stop: 12/25/17 10:17 Propofol (Diprivan 20 Ml) Confirm Administered Dose 400 mg .ROUTE .STK-MED ONE Stop: 12/25/17 10:22 Succinylcholine Chloride (Quelicin) Confirm Administered Dose 200 mg .ROUTE .STK -MED ONE Stop: 12/25/17 13:20 - Exam General: Reports: Alert, Oriented HEENT: Reports: Pupils Equal, Pupils Reactive, EOMI, Mucous Membr. Moist/[place] Neck: Reports: Supple Lungs: Reports: Clear to Auscultation, Normal Respiratory Effort Cardiovascular: Reports: Regular Rate, Regular Rhythm GI/Abdominal Exam: Normal Bowel Sounds, Soft, Non-Tender, No Organomegaly, No Distention, No Abnormal Bruit, No Mass, Pelvis Stable (Female) Exam: Normal External Exam, Normal Speculum Exam, Normal Bimanual Exam Rectal (Female) Exam: Normal Exam, Normal Rectal Tone Back Exam: Reports: Normal Inspection, Full Range of Motion Extremities: Normal Inspection, Normal Range of Motion, Non-Tender, No Pedal Edema, Normal Capillary Refill Skin: Reports: Warm, Dry, Intact Wound/Incisions: Reports: Healing Well Neurological: Reports: No New Focal Deficit Psy/Mental Status: Reports: Alert, Normal Affect, Normal Mood
[2017-12-25] MEDS ORDERED: fentaNYL 100 MCG/2 ML SDV IVPUSH PRN (13:48)
--- NOTE | 2017-12-25 14:16 | OR ---
SURGEON: Marc Carter MD DATE OF PROCEDURE: 12/25/2017 PREOPERATIVE DIAGNOSIS: Blighted ovum. POSTOPERATIVE DIAGNOSIS: Blighted ovum. OPERATION PERFORMED: Dilatation and evacuation. ANTHROPOLOGY DEPARTMENT CHAIR: OR tech. ANESTHESIA: General by Dr. Emery Ponce and Dr. Galicia. ESTIMATED BLOOD LOSS: 100 mL. COMPLICATIONS: None. FINDINGS: Products of conception. INDICATION FOR SURGERY: The patient had repeated ultrasound, which shows gestational sacs with no pole, and declining beta HCG SONDRA. The patient is admitted for elective D and E. PROCEDURE IN DETAIL: The patient was brought to the OR, properly identified and after adequate level of anesthesia, the patient was placed in lithotomy position, prepped and draped in sterile fashion as usual, and straight catheter was used to empty the bladder and then the cervix was grabbed with the stabilizer, and then sequentially dilated to accommodate #8 cannula. The cannula was placed in the endometrial cavity. The endometrial cavity evacuated completely in uniformity from all products of conception. Once this diet done, the suction was stopped and the cannula removed and the procedure ended. Estimated blood loss is about 100 mL. Complication is none. The patient tolerated the procedure well and went to recovery room in stable general condition. CHRISTOPH / CARLOS /[id number]
[2017-12-25 15:45] VITALS: BP 107/73
== END 2017-12-25 15:20 | disposition home or self-care (01) ==
LOC: MW.SDS 09:09
PROVIDERS: ATTEND Obstetrics & Gynecology
DX: O02.0 Blighted ovum and nonhydatidiform mole (principal); O43.891 Other placental disorders, first trimester
CPT/HCPCS: 36415; 59820; 85014; 85018; 86850; 86900; 86901; 88305; J0330; J2250; J3010; J7120; A9270-GY; J2210; J2704

== ENCOUNTER 2018-03-30 09:13 | Emergency (ER) | payer MEDICAID ==
--- NOTE | 2018-03-30 10:28 | EDM.PDOC ---
ED HPI GENERAL MEDICAL PROBLEM - General Chief Complaint: Genitourinary Problem Stated Complaint: ITCHING IN RECTAL AREA Time Seen by Provider: 03/30/18 09:24 Source of Information: Reports: Patient History Limitations: Reports: No Limitations - History of Present Illness INITIAL COMMENTS - FREE TEXT/NARRATIVE: History of present illness: []Patient was treated with antibiotics recently for dental infection and has now developed vaginal and rectal itching. She has been taking Monistat which has has helped with vaginal discharge but itching continues. Review of systems: As per history of present illness and below otherwise all systems reviewed and negative. Past medical history: As per history of present illness and as reviewed below otherwise noncontributory. Surgical history: As per history of present illness and as reviewed below otherwise noncontributory. Social history: No reported history of drug or alcohol abuse. Family history: As per history of present illness and as reviewed below otherwise noncontributory. Physical exam: General: Well developed, well nourished in NAD HEENT: Atraumatic, normocephalic, pupils reactive, negative for conjunctival pallor or scleral icterus, mucous membranes moist, throat clear, neck supple, nontender, trachea midline. Lungs: Clear to auscultation, breath sounds equal bilaterally, chest nontender. Heart: S1S2, regular, negative for clicks, rubs, or JVD. Abdomen: Soft, nondistended, nontender. Negative for masses or hepatosplenomegaly. Negative for costovertebral tenderness. Pelvis: Stable nontender. Genitourinary: She declined pelvic exam Rectal: Patient declined rectal exam Extremities: Atraumatic, negative for cords or calf pain. Neurovascular unremarkable. Neuro: Awake, alert, oriented. Cranial nerves II through XII unremarkable. Cerebellum unremarkable. Motor and sensory unremarkable throughout. Exam nonfocal. Skin:warm and dry Diagnostics: None Therapeutics: None ED Course: Unremarkable Impression: Yeast infection Prescriptions: Diflucan 1 tablet Plan: Follow-up with women's healthcare Definitive disposition and diagnosis as appropriate pending reevaluation and review of above. 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 ED EXAM, RENAL/ - Physical Exam Exam: See Below (History of present illness) Course - Vital Signs Last Recorded V/S: Last Vital Signs Temp 97.6 F 03/30/18 09:21 Pulse 103 H 03/30/18 09:21 Resp 16 03/30/18 09:21 BP 97/54 L 03/30/18 09:21 Pulse Ox 98 03/30/18 09:21 Departure - Departure Time of Disposition: 10:27 Disposition: Home, Self-Care 01 Condition: Good Clinical Impression: Yeast infection - Discharge Information *PRESCRIPTION DRUG MONITORING PROGRAM REVIEWED*: No Prescriptions: Fluconazole [Diflucan] 100 mg PO ASDIRECTED #1 tablet Referrals: PCP,None [Primary Care Provider] - Additional Instructions: The following information is given to patients seen in the emergency department who are being discharged to home. This information is to outline your options for follow-up care. We provide all patients seen in our emergency department with a follow-up referral. The need for follow-up, as well as the timing and circumstances, are variable depending upon the specifics of your emergency department visit. If you don't have a primary care physician on staff, we will provide you with a referral. We always advise you to contact your personal physician following an emergency department visit to inform them of the circumstance of the visit and for follow-up with them and/or the need for any referrals to a consulting specialist. The emergency department will also refer you to a specialist when appropriate. This referral assures that you have the opportunity for follow-up care with a specialist. All of these measure are taken in an effort to provide you with optimal care, which includes your follow-up. Under all circumstances we always encourage you to contact your private physician who remains a resource for coordinating your care. When calling for follow-up care, please make the office aware that this follow-up is from your recent emergency room visit. If for any reason you are refused follow-up, please contact the [facility] Emergency Department at and asked to speak to the emergency department charge nurse. Take Jennifer today, follow-up with women's health as needed if symptoms continue [facility] - [facility] [address] [place] [id number]
[2018-03-30 10:39] VITALS: BP 104/60
== END 2018-03-30 10:35 | disposition home or self-care (01) ==
LOC: MW.ED 09:13
DX: B37.3 Candidiasis of vulva and vagina (principal)
CPT/HCPCS: 99283

== ENCOUNTER 2018-05-14 08:21 | Emergency (ER) | payer BC, MEDICAID ==
[2018-05-14] MEDS ORDERED: Azithromycin 250 MG Tab PO ONE (09:35)
[2018-05-14] MEDS ORDERED: cefTRIAXone 250 MG in Lidocaine 1% 1 ML IM ONE (09:35)
[2018-05-14] MEDS ORDERED: cefTRIAXone 250 MG in Lidocaine 1% 0.9 ML IM ONE (09:43)
--- NOTE | 2018-05-14 09:43 | EDM.PDOC ---
ED HPI GENERAL MEDICAL PROBLEM - General Chief Complaint: BAKER TEST Problem Stated Complaint: PER PT; SHE HAS SOME TYPE OF INFECTION Time Seen by Provider: 05/14/18 09:27 - History of Present Illness INITIAL COMMENTS - FREE TEXT/NARRATIVE: HISTORY AND PHYSICAL: History of present illness: The patient is a 28-year-old female who presented to the ER with 2 day history of watery, foul-smelling vaginal discharge. She denies any history of STI. She did have a yeast infection last month that resolved with a onetime dose of Diflucan. She denies any burning with urination , pain, itching, abdominal pain, nausea, vomiting, constipation, diarrhea, or fever/chills. Reports her last period was a few days ago and no chance she could be . [] Review of systems: As per history of present illness and below otherwise all systems reviewed and negative. Past medical history: As per history of present illness and as reviewed below otherwise noncontributory. Surgical history: As per history of present illness and as reviewed below otherwise noncontributory. Social history: No reported history of drug or alcohol abuse. Family history: As per history of present illness and as reviewed below otherwise noncontributory. Physical exam: Lungs: Clear to auscultation, breath sounds equal bilaterally, chest nontender. Heart: S1S2, regular, negative for clicks, rubs, or JVD. Abdomen: Soft, nondistended, nontender. Negative for masses or hepatosplenomegaly. Negative for costovertebral tenderness. Pelvis: Stable nontender. Genitourinary: Refused Rectal: Deferred. Extremities: Atraumatic, negative for cords or calf pain. Neurovascular unremarkable. Neuro: Awake, alert, oriented. Cranial nerves II through XII unremarkable. Cerebellum unremarkable. Motor and sensory unremarkable throughout. Exam nonfocal. Diagnostics: [UA, HCG, gonorrhea and chlamydia] Therapeutics: [250 mg IM of Rocephin and 1 g of azithromycin] Impression: [STI versus yeast infection versus UTI] Plan: [The patient refused a pelvic exam. Her UA did not show any signs of infection and her urine hCG was negative. She wanted treatment for possible STI or yeast infection and stated she would follow up with her primary care if she didn't get improvement. She will be discharged home with a course of Flagyl and onetime dose of Diflucan .] Definitive disposition and diagnosis as appropriate pending reevaluation and review of above. - Related Data Allergies Allergy/AdvReac Type Severity Reaction Status Date / Time No Known Allergies Allergy Verified 05/14/18 08:40 Home Meds: Home Meds Fluconazole [Diflucan] 150 mg PO ONETIME 1 Days #1 tab 05/14/18 [Rx] metroNIDAZOLE [Metronidazole] 500 mg PO BID 7 Days #14 tablet 05/14/18 [Rx] Past Medical History - Past Health History Medical/Surgical History: Denies Medical/Surgical History BAKER TEST History: Reports: , Spontaneous Hematologic History: Reports: Anemia - Past Surgical History Head Surgeries/Procedures: Reports: None Female Surgical History: Reports: D&C Social & Family History - Family History Family Medical History: Noncontributory - Tobacco Use Smoking Status *Q: Never Smoker Second Hand Smoke Exposure: No - Caffeine Use Caffeine Use: Reports: None - Recreational Drug Use Recreational Drug Use: No ED ROS GENERAL - Review of Systems Review Of Systems: See Below (See dictation) ED EXAM, RENAL/ - Physical Exam Exam: See Below (See dictation) Course - Vital Signs Last Recorded V/S: Last Vital Signs Temp 97.2 F 05/14/18 08:38 Pulse 79 05/14/18 08:38 Resp 16 05/14/18 08:38 BP 112/58 L 05/14/18 08:38 Pulse Ox 100 05/14/18 08:38 - Orders/Labs/Meds Orders: Active Orders 24 hr Category Date Time Status CHLAMYDIA AND GONORRHEA BY TMA Stat Lab 05/14/18 09:34 Ordered Labs: Laboratory Tests 05/14/18 05/14/18 Range/Units 08:44 08:44 Urine Color YELLOW Urine Appearance CLEAR Urine pH 6.0 (5.0-8.0) Ur Specific [place] 1.010 (1.001-1.035) Urine Protein NEGATIVE (NEGATIVE) mg/dL Urine Glucose (UA) NEGATIVE (NEGATIVE) mg/dL Urine Ketones NEGATIVE (NEGATIVE) mg/dL Urine Occult Blood NEGATIVE (NEGATIVE) Urine Nitrite NEGATIVE (NEGATIVE) Urine Bilirubin NEGATIVE (NEGATIVE) Urine Urobilinogen 0.2 (<2.0) EU/dL Ur Leukocyte Esterase NEGATIVE (NEGATIVE) Urine RBC 0-1 (0-2/HPF) Urine WBC 0-1 (0-5/HPF) Ur Epithelial Cells RARE (NONE-FEW) Urine Bacteria FEW (NEGATIVE) Urine HCG, Qual NEGATIVE (NEGATIVE) Meds: Medications Discontinued Medications Generic Name Dose Route Start Last Admin Trade Name Meri PRN Reason Stop Dose Admin Azithromycin 1,000 mg 05/14/18 09:35 Zithromax PO 05/14/18 09:36 ONETIME ONE Ceftriaxone Sodium 250 mg/ 1 mls @ 1 mls/sec 05/14/18 09:35 Lidocaine HCl IM 05/14/18 09:36 ONETIME ONE Departure - Departure Time of Disposition: :47 Disposition: Home, Self-Care 01 Condition: Good Clinical Impression: Bacterial vaginosis, STI (sexually transmitted infection) - Discharge Information *PRESCRIPTION DRUG MONITORING PROGRAM REVIEWED*: No *COPY OF PRESCRIPTION DRUG MONITORING REPORT IN PATIENT LILIAN: No Prescriptions: Fluconazole [Diflucan] 150 mg PO ONETIME 1 Days #1 tab metroNIDAZOLE [Metronidazole] 500 mg PO BID 7 Days #14 tablet Referrals: PCP,None [Primary Care Provider] - Additional Instructions: My general discharge The following information is given to patients seen in the emergency department who are being discharged to home. This information is to outline your options for follow-up care. We provide all patients seen in our emergency department with a follow-up referral. The need for follow-up, as well as the timing and circumstances, are variable depending upon the specifics of your emergency department visit. If you don't have a primary care physician on staff, we will provide you with a referral. We always advise you to contact your personal physician following an emergency department visit to inform them of the circumstance of the visit and for follow-up with them and/or the need for any referrals to a consulting specialist. The emergency department will also refer you to a specialist when appropriate. This referral assures that you have the opportunity for follow-up care with a specialist. All of these measure are taken in an effort to provide you with optimal care, which includes your follow-up. Under all circumstances we always encourage you to contact your private physician who remains a resource for coordinating your care. When calling for follow-up care, please make the office aware that this follow-up is from your recent emergency room visit. If for any reason you are refused follow-up, please contact the [facility] Emergency Department at and asked to speak to the emergency department charge nurse. My Primary Care [facility] [address] [place] [phone] - My Orders Last 24 Hours: My Active Orders 05/14/18 09:34 CHLAMYDIA AND GONORRHEA BY TMA Stat - Assessment/Plan Last 24 Hours: My Active Orders 05/14/18 09:34 CHLAMYDIA AND GONORRHEA BY TMA Stat
[2018-05-14] MEDS ORDERED: cefTRIAXone 250 MG Vial ONE (10:22)
[2018-05-14 12:20] VITALS: BP 109/55
== END 2018-05-14 10:25 | disposition home or self-care (01) ==
LOC: MW.ED 08:21
DX: N76.0 Acute vaginitis (principal); Z20.2 Contact with and (suspected) exposure to infections with a predominantly sexual mode of transmission
CPT/HCPCS: 81001; 81025; 87491; 87591; 96372; 99283; A9270; J0696; J2001

== ENCOUNTER 2018-10-26 17:08 | Emergency (ER) | payer MEDICAID ==
--- NOTE | 2018-10-26 17:49 | EDM.PDOC ---
ED HPI GENERAL MEDICAL PROBLEM - General Chief Complaint: ENT Problem Stated Complaint: EARS RINGING,GUMS SWOLLEN Time Seen by Provider: 10/26/18 17:28 Source of Information: Reports: Patient History Limitations: Reports: No Limitations - History of Present Illness INITIAL COMMENTS - FREE TEXT/NARRATIVE: History of present illness: [] Patient is 6 months complaining of gum pain, old symptoms and ear pain. Denies any fevers, chills, abdominal pain, vaginal bleeding, sore throat, ,difficulty eating or shortness of breath. Review of systems: As per history of present illness and below otherwise all systems reviewed and negative. Past medical history: As per history of present illness and as reviewed below otherwise noncontributory. Surgical history: As per history of present illness and as reviewed below otherwise noncontributory. Social history: No reported history of drug or alcohol abuse. Family history: As per history of present illness and as reviewed below otherwise noncontributory. Physical exam: General: Well developed, well nourished in NAD HEENT: Atraumatic, normocephalic, pupils reactive, negative for conjunctival pallor or scleral icterus, mucous membranes moist, throat clear, no erythema or edema neck supple, nontender, trachea midline. Gingival hyperplasia or purulent drainage in the TMs clear Lungs: Clear to auscultation, breath sounds equal bilaterally, chest nontender. Heart: S1S2, regular, negative for clicks, rubs, or JVD. Abdomen: NABS, Soft, nondistended, nontender. Negative for masses or hepatosplenomegaly. Negative for costovertebral tenderness. Pelvis: Stable nontender. Genitourinary: Deferred. Rectal: Deferred. Extremities: Atraumatic, negative for cords or calf pain. Neurovascular unremarkable. Neuro: Awake, alert, oriented. Cranial nerves II through XII unremarkable. Cerebellum unremarkable. Motor and sensory unremarkable throughout. Exam nonfocal. Skin:warm and dry Diagnostics: None Therapeutics: none ED Course: Unremarkable Impression: Viral syndrome Prescriptions: None Plan: Follow up with OB or primary care. Definitive disposition and diagnosis as appropriate pending reevaluation and review of above. Generalized Pain Score (Numeric/FACES): 8 - Related Data Allergies Allergy/AdvReac Type Severity Reaction Status Date / Time No Known Allergies Allergy Verified 07/13/18 11:42 Home Meds: Home Meds . 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 ED EXAM, ENT - Physical Exam Exam: See Below (History of present illness) Course - Vital Signs Last Recorded V/S: Last Vital Signs Temp 97.5 F 10/26/18 17:31 Pulse 108 H 10/26/18 17:31 Resp 17 10/26/18 17:31 BP 114/71 10/26/18 17:31 Pulse Ox 98 10/26/18 17:31 Departure - Departure Time of Disposition: 17:49 Disposition: Home, Self-Care 01 Condition: Good Clinical Impression: Viral syndrome - Discharge Information *PRESCRIPTION DRUG MONITORING PROGRAM REVIEWED*: No *COPY OF PRESCRIPTION DRUG MONITORING REPORT IN PATIENT LILIAN: No Referrals: PCP,None [Primary Care Provider] - Additional Instructions: The following information is given to patients seen in the emergency department who are being discharged to home. This information is to outline your options for follow-up care. We provide all patients seen in our emergency department with a follow-up referral. The need for follow-up, as well as the timing and circumstances, are variable depending upon the specifics of your emergency department visit. If you don't have a primary care physician on staff, we will provide you with a referral. We always advise you to contact your personal physician following an emergency department visit to inform them of the circumstance of the visit and for follow-up with them and/or the need for any referrals to a consulting specialist. The emergency department will also refer you to a specialist when appropriate. This referral assures that you have the opportunity for follow-up care with a specialist. All of these measure are taken in an effort to provide you with optimal care, which includes your follow-up. Under all circumstances we always encourage you to contact your private physician who remains a resource for coordinating your care. When calling for follow-up care, please make the office aware that this follow-up is from your recent emergency room visit. If for any reason you are refused follow-up, please contact the [facility] Emergency Department at and asked to speak to the emergency department charge nurse. [facility] Primary [facility] [address] [place] [id number]
[2018-10-26 18:12] VITALS: BP 123/98
== END 2018-10-26 18:03 | disposition home or self-care (01) ==
LOC: MW.ED 17:08
DX: B34.9 Viral infection, unspecified (principal)
CPT/HCPCS: 99282

== ENCOUNTER 2018-12-12 11:54 | Emergency (ER) | payer MEDICAID ==
[2018-12-12 12:15] VITALS: BP 111/70
--- NOTE | 2018-12-12 12:45 | EDM.PDOC ---
ED HPI GENERAL MEDICAL PROBLEM - General Chief Complaint: Eye Problems Stated Complaint: ITCHY RED EYES Time Seen by Provider: 12/12/18 12:38 Source of Information: Reports: Patient History Limitations: Reports: No Limitations - History of Present Illness INITIAL COMMENTS - FREE TEXT/NARRATIVE: HISTORY AND PHYSICAL: History of present illness: Patient is a 28-year-old female presents to the ED today with concern of right sided pinkeye. Patient states her symptoms started last night. She states she her right eye began itching and this morning she woke up with it crusted over. Patient denies any visual changes or pain of the eye. Patient states she's been around several infants also have had pinkeye. Patient denies any trauma or injury to the eye. Patient denies fever, chills, chest pain, shortness of breath, or cough. Denies headache, neck stiff ness, change in vision, syncope, or near syncope. Denies nausea, vomiting, abdominal pain, diarrhea, constipation, or dysuria. Has not noted any blood in urine or stool. Patient has been eating and drinking appropriately. Patient denies any health history. Review of systems: As per history of present illness and below otherwise all systems reviewed and negative. Past medical history: As per history of present illness and as reviewed below otherwise noncontributory. Surgical history: As per history of present illness and as reviewed below otherwise noncontributory. Social history: See social history for further information Family history: As per history of present illness and as reviewed below otherwise noncontributory. Physical exam: General: Patient is alert, oriented, and in no acute distress. Patient sitting comfortably on exam table. HEENT: Atraumatic, normocephalic, pupils equal and reactive bilaterally, patient has injected sclera of the right eye with tearing and crust on the inferior lashes, left eye negative for injection/palor/icteris. mucous membranes moist, TMs normal bilaterally, throat clear, neck supple, nontender, trachea midline. No drooling or trismus noted. No meningeal signs. No hot potato voice noted. EOMs intact without pain, difficulty. Lungs: Clear to auscultation, breath sounds equal bilaterally, chest nontender. Heart: S1S2, regular rate and rhythm without overt murmur Abdomen: Soft, nondistended, nontender. Negative for masses or hepatosplenomegaly. Negative for costovertebral tenderness. Pelvis: Stable nontender. Genitourinary: Deferred. Rectal: Deferred. Skin: Intact, warm, dry. No lesions or rashes noted. Extremities: Atraumatic, negative for cords or calf pain. Neurovascular unremarkable. Neuro: Awake, alert, oriented. Cranial nerves II through XII unremarkable. Cerebellum unremarkable. Motor and sensory unremarkable throughout. Exam nonfocal. Notes: Visual acuity performed upon arrival to the ED and intact. Discussed the importance for follow-up with primary care provider. Voices understanding and is agreeable to plan of care. Denies any further questions or concerns at this time. Diagnostics: None Therapeutics: None Prescription: Erythromycin ophthalmic Impression: Bacterial conjunctivitis, right Plan: 1. Apply medication as prescribed. You can alternate ibuprofen and Tylenol as directed for pain and discomfort. 2. Follow-up with your primary care provider as discussed. 3. Return to the ED as needed and as discussed. Definitive disposition and diagnosis as appropriate pending reevaluation and review of above. - Related Data Allergies Allergy/AdvReac Type Severity Reaction Status Date / Time No Known Allergies Allergy Verified 07/13/18 11:42 Home Meds: Home Meds . 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 ED EXAM GENERAL W FULL EYE - Physical Exam Exam: See Below (see dictation) Course - Vital Signs Last Recorded V/S: Last Vital Signs Temp 36.3 C 12/12/18 12:13 Pulse 104 H 12/12/18 12:13 Resp 18 12/12/18 12:13 BP 111/70 12/12/18 12:13 Pulse Ox 98 12/12/18 12:13 Departure - Departure Time of Disposition: 12:45 Disposition: Home, Self-Care 01 Clinical Impression: Bacterial conjunctivitis - Discharge Information Instructions: Bacterial Conjunctivitis, [id number] Referrals: PCP,None [Primary Care Provider] - Additional Instructions: The following information is given to patients seen in the emergency department who are being discharged to home. This information is to outline your options for follow-up care. We provide all patients seen in our emergency department with a follow-up referral. The need for follow-up, as well as the timing and circumstances, are variable depending upon the specifics of your emergency department visit. If you don't have a primary care physician on staff, we will provide you with a referral. We always advise you to contact your personal physician following an emergency department visit to inform them of the circumstance of the visit and for follow-up with them and/or the need for any referrals to a consulting specialist. The emergency department will also refer you to a specialist when appropriate. This referral assures that you have the opportunity for follow-up care with a specialist. All of these measure are taken in an effort to provide you with optimal care, which includes your follow-up. Under all circumstances we always encourage you to contact your private physician who remains a resource for coordinating your care. When calling for follow-up care, please make the office aware that this follow-up is from your recent emergency room visit. If for any reason you are refused follow-up, please contact the [facility] at and asked to speak to the emergency department charge nurse. [facility] [address] [place] [id number] [id number] 1. Apply medication as prescribed. You can alternate ibuprofen and Tylenol as directed for pain and discomfort. 2. Follow-up with your primary care provider as discussed. 3. Return to the ED as needed and as discussed.
== END 2018-12-12 12:55 | disposition home or self-care (01) ==
LOC: MW.ED 11:54
DX: H10.9 Unspecified conjunctivitis (principal)
CPT/HCPCS: 99282

== ENCOUNTER 2019-02-01 09:55 | Inpatient (IN) | payer MEDICAID ==
[2019-02-01] MEDS ORDERED: Misoprostol 25 MCG (1/4 of 100 MCG) Tab PO PRN (10:21)
[2019-02-01] MEDS ORDERED: Carboprost Tromethamine 250 MCG/1 ML Amp IM PRN (10:21)
[2019-02-01] MEDS ORDERED: Sodium Chloride 0.9% 2.5 ML Syringe FLUSH PRN (10:21)
[2019-02-01] MEDS ORDERED: Sodium Chloride 0.9% 10 ML SDV IV PRN (10:21)
[2019-02-01] MEDS ORDERED: Ondansetron 4 MG/2 ML SDV IV PRN (10:21)
[2019-02-01] MEDS ORDERED: Methylergonovine 0.2 MG/1 ML Amp IM PRN (10:21)
[2019-02-01] MEDS ORDERED: Water For Irrigation,Sterile 1,000 ML Container IRR PRN (10:21)
[2019-02-01] MEDS ORDERED: Nalbuphine 10 MG/1 ML Vial IVPUSH PRN (10:21)
[2019-02-01] MEDS ORDERED: Tranexamic Acid 1,000 MG in Sodium Chloride 0.9% 100 ML IV PRN (10:21)
[2019-02-01] MEDS ORDERED: Misoprostol 200 MCG Tab PO PRN (10:21)
[2019-02-01] MEDS ORDERED: Lidocaine 1% 50 ML MDV INJECT PRN (10:21)
[2019-02-01] MEDS ORDERED: Terbutaline 1 MG/ML SDV SUBCUT PRN (10:21)
[2019-02-01] MEDS ORDERED: Misoprostol 25 MCG (1/4 of 100 MCG) Tab VAG PRN (10:21)
[2019-02-01] MEDS ORDERED: Sodium Chloride 0.9% 10 ML Syringe FLUSH PRN (10:21)
[2019-02-01] MEDS ORDERED: Oxytocin/0.9 % Sodium Chloride 30 UNIT/500 ML BAG IV SCH ×2 (10:30)
--- NOTE | 2019-02-01 12:09 | PCM.LDHP ---
L&D History of Present Illness - General Date of Service: 02/01/19 Admit Problem/Dx: Patient Status Order with Admit Dx/Problem 02/01/19 10:21 Patient Status [ADT] Routine Admission Diagnosis/Problem Admission Diagnosis/Problem Source of Information: Patient History Limitations: Reports: No Limitations - History of Present Illness Improves with: Reports: None Worsens with: Reports: None Associated Symptoms: Reports: N - Related Data Allergies/Adverse Reactions: Allergies Allergy/AdvReac Type Severity Reaction Status Date / Time No Known Allergies Allergy Verified 02/01/19 10:20 Home Medications: Home Meds . 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 Hematologic History: Reports: Anemia - Infectious Disease History Infectious Disease History: Reports: None - Past Surgical History Head Surgeries/Procedures: Reports: None Female Surgical History: Reports: D&C Social & Family History - Family History Family Medical History: Noncontributory - Caffeine Use Caffeine Use: Reports: None H&P Review of Systems - Review of Systems: Review Of Systems: See Below General: Reports: No Symptoms HEENT: Reports: No Symptoms Pulmonary: Reports: No Symptoms Cardiovascular: Reports: No Symptoms Gastrointestinal: Reports: No Symptoms Genitourinary: Reports: No Symptoms Musculoskeletal: Reports: No Symptoms Skin: Reports: No Symptoms Psychiatric: Reports: No Symptoms Neurological: Reports: No Symptoms Hematologic/Lymphatic: Reports: No Symptoms Immunologic: Reports: No Symptoms L&D Exam - Exam Exam: See Below - Vital Signs Weight: 81.193 kg - OB Specific Fundal Height In cm: 38 Contraction Intensity: Mild Movement: Active Heart Tones: Present Presentation: Vertex - Torres Score Torres Score Cervix Position: Midposition Torres Score Consistency: Soft Torres Score Effacement: 51-70% Torres Score Dilation: 1-2 cm Torres Score 's Station: -3 Torres Score Total: 6 - Patient Data Lab Results Last 24 hrs: Laboratory Results - last 24 hr 02/01/19 02/01/19 Range/Units 10:56 10:56 WBC 11.54 H (4.0-11.0) K/uL RBC 4.48 (4.30-5.90) M/uL Hgb 9.8 L (12.0-16.0) g/dL Hct 31.0 L (36.0-46.0) % MCV 69.2 L (80.0-98.0) fL MCH 21.9 L (27.0-32.0) pg MCHC 31.6 (31.0-37.0) g/dL RDW Std Deviation 44.6 (28.0-62.0) fl RDW Coeff of Alyssa 18 H (11.0-15.0) % Plt Count 313 (150-400) K/uL MPV 10.30 (7.40-12.00) fL Nucleated RBC % 0.1 /100WBC Nucleated RBCs # 0 K/uL Blood Type O POSITIVE Antibody Screen NEGATIVE Result Diagrams: 02/01/19 10:56 Problem List Initiated/Reviewed/Updated: Yes Orders Last 24hrs: Active Orders 24 hr Category Date Time Status Patient Status [ADT] Routine ADT 02/01/19 10:21 Active Bedrest Bathroom Privileges [RC] ASDIRECTED Care 02/01/19 10:21 Active Communication Order [RC] ASDIRECTED Care 02/01/19 10:21 Active Communication Order [RC] ASDIRECTED Care 02/01/19 10:21 Active Communication Order [RC] ASDIRECTED Care 02/01/19 10:21 Active Heart Tones [RC] CONTINUOUS Care 02/01/19 10:21 Active Non Stress Test [RC] PER UNIT ROUTINE Care 02/01/19 10:21 Active May Shower [RC] ASDIRECTED Care 02/01/19 10:21 Active Notify Provider [RC] PRN Care 02/01/19 10:21 Active Notify Provider [RC] PRN Care 02/01/19 10:21 Active Notify Provider [RC] PRN Care 02/01/19 10:21 Active Notify Provider [RC] STAT Care 02/01/19 10:21 Active Oxygen Therapy [RC] ASDIRECTED Care 02/01/19 10:21 Active Up ad Yina [RC] ASDIRECTED Care 02/01/19 10:21 Active Vaginal Exam [RC] PRN Care 02/01/19 10:21 Active Vaginal Exam [RC] PRN Care 02/01/19 10:21 Active Vital Signs [RC] PER UNIT ROUTINE Care 02/01/19 10:21 Active Vital Signs [RC] PER UNIT ROUTINE Care 02/01/19 10:21 Active Regular Diet [DIET] Diet 02/01/19 Lunch Active Carboprost Tromethamine [Hemabate DS] Med 02/01/19 10:21 Active 250 mcg IM ASDIRECTED PRN Lactated Ringers [Ringers, Lactated] 1,000 ml Med 02/01/19 10:30 Active IV ASDIRECTED Lidocaine 1% [Xylocaine 1%] Med 02/01/19 10:21 Active 50 ml INJECT ONETIME PRN Methylergonovine [Methergine] Med 02/01/19 10:21 Active 0.2 mg IM ASDIRECTED PRN Nalbuphine [Nubain] Med 02/01/19 10:21 Active 10 mg IVPUSH Q1H PRN Ondansetron [Zofran] Med 02/01/19 10:21 Active 4 mg IV Q6H PRN Oxytocin/0.9 % Sodium Chloride [Oxytocin 30 Unit/500 ML Med 02/01/19 10:30 Active -NS] 30 unit in 500 ml IV TITRATE Oxytocin/0.9 % Sodium Chloride [Oxytocin 30 Unit/500 ML Med 02/01/19 10:30 Active -NS] 30 unit in 500 ml IV TITRATE Sodium Chloride 0.9% [Normal Saline] Med 02/01/19 10:21 Active 10 ml IV ASDIRECTED PRN Sodium Chloride 0.9% [Saline Flush] Med 02/01/19 10:21 Active 10 ml FLUSH ASDIRECTED PRN Sodium Chloride 0.9% [Saline Flush] Med 02/01/19 10:21 Active 2.5 ml FLUSH ASDIRECTED PRN Terbutaline [Brethine] Med 02/01/19 10:21 Active 0.25 mg SUBCUT ASDIRECTED PRN Tranexamic Acid [Cyklokapron] 1,000 mg Med 02/01/19 10:21 Active Sodium Chloride 0.9% [Normal Saline] 100 ml IV ONETIME Water For Irrigation,Sterile [Sterile Water for Med 02/01/19 10:21 Active Irrigation] 1,000 ml IRR ASDIRECTED PRN miSOPROStol [Cytotec] Med 02/01/19 10:21 Active 200 mcg PO ONETIME PRN miSOPROStol [Cytotec] Med 02/01/19 10:21 Active 25 mcg PO Q4H PRN miSOPROStol [Cytotec] Med 02/01/19 10:21 Active 25 mcg VAG Q4H PRN Scalp Electrode [WOMSER] Per Unit Routine Oth 02/01/19 10:21 Ordered Medication Administration Instruction [OM.PC] Q3H Oth 02/01/19 10:30 Ordered Peripheral IV Insertion Adult [OM.PC] Routine Oth 02/01/19 10:21 Ordered Resuscitation Status Routine Resus Stat 02/01/19 10:21 Ordered Medication Orders Carboprost Tromethamine (Hemabate Ds) 250 mcg IM ASDIRECTED PRN PRN Reason: Post Hemorrhage Lactated Ringer's (Ringers, Lactated) 1,000 mls @ 150 mls/hr IV ASDIRECTED ARELY Oxytocin/Sodium Chloride (Oxytocin 30 Unit/500 Ml-Ns) 30 unit in 500 mls @ 999 mls/hr IV TITRATE ARELY Oxytocin/Sodium Chloride (Oxytocin 30 Unit/500 Ml-Ns) 30 unit in 500 mls @ 2 mls/hr IV TITRATE ARELY; Protocol Tranexamic Acid 1,000 mg/ (Sodium Chloride) 110 mls @ 660 mls/hr IV ONETIME PRN PRN Reason: Bleeding Lidocaine HCl (Xylocaine 1%) 50 ml INJECT ONETIME PRN PRN Reason: Laceration repair Methylergonovine Maleate (Methergine) 0.2 mg IM ASDIRECTED PRN PRN Reason: Post Hemorrhage Misoprostol (Cytotec) 200 mcg PO ONETIME PRN PRN Reason: Post Hemorrhage Misoprostol (Cytotec) 25 mcg VAG Q4H PRN PRN Reason: Cervical Ripening Last Admin: 02/01/19 11:27 Dose: 25 mcg Misoprostol (Cytotec) 25 mcg PO Q4H PRN PRN Reason: Cervical Ripening Last Admin: 02/01/19 11:26 Dose: 25 mcg Nalbuphine HCl (Nubain) 10 mg IVPUSH Q1H PRN PRN Reason: Pain (severe 7-10) Ondansetron HCl (Zofran) 4 mg IV Q6H PRN PRN Reason: Nausea/Vomiting Sodium Chloride (Saline Flush) 10 ml FLUSH ASDIRECTED PRN PRN Reason: Keep Vein Open Sodium Chloride (Saline Flush) 2.5 ml FLUSH ASDIRECTED PRN PRN Reason: Keep Vein Open Sodium Chloride (Normal Saline) 10 ml IV ASDIRECTED PRN PRN Reason: IV Use Sterile Water (Sterile Water For Irrigation) 1,000 ml IRR ASDIRECTED PRN PRN Reason: delivery Terbutaline Sulfate (Brethine) 0.25 mg SUBCUT ASDIRECTED PRN PRN Reason: Tacysystole
[2019-02-01] MEDS: Lactated Ringers 1,000 ML IV SCH ×2 (18:23→21:11)
[2019-02-01] MEDS ORDERED: Ropivacaine HCl/PF 100 ML ONE (20:58)
--- NOTE | 2019-02-01 21:18 | PCM.PREANE ---
Preanesthetic Assessment - Anesthesia/Transfusion/Family Hx Anesthesia History: Prior Anesthesia Without Reaction Family History of Anesthesia Reaction: No Transfusion History: No Prior Transfusion(s) Intubation History: Unknown - Physical Assessment Height: 1.63 m Weight: 81.193 kg ASA Class: 1 - Lab Values: Laboratory Last Values WBC 11.54 K/uL (4.0-11.0) H 02/01/19 10:56 RBC 4.48 M/uL (4.30-5.90) 02/01/19 10:56 Hgb 9.8 g/dL (12.0-16.0) L 02/01/19 10:56 Hct 31.0 % (36.0-46.0) L 02/01/19 10:56 MCV 69.2 fL (80.0-98.0) L 02/01/19 10:56 MCH 21.9 pg (27.0-32.0) L 02/01/19 10:56 MCHC 31.6 g/dL (31.0-37.0) 02/01/19 10:56 RDW Std Deviation 44.6 fl (28.0-62.0) 02/01/19 10:56 RDW Coeff of Alyssa 18 % (11.0-15.0) H 02/01/19 10:56 Plt Count 313 K/uL (150-400) 02/01/19 10:56 MPV 10.30 fL (7.40-12.00) 02/01/19 10:56 Nucleated RBC % 0.1 /100WBC 02/01/19 10:56 Nucleated RBCs # 0 K/uL 02/01/19 10:56 Blood Type O POSITIVE 02/01/19 10:56 Antibody Screen NEGATIVE 02/01/19 10:56 - Allergies Allergies/Adverse Reactions: Allergies Allergy/AdvReac Type Severity Reaction Status Date / Time No Known Allergies Allergy Verified 02/01/19 10:20 - Acknowledgements Anesthesia Type Planned: Epidural Pt an Appropriate Candidate for the Planned Anesthesia: Yes Alternatives and Risks of Anesthesia Discussed w Pt/Guardian: Yes Pt/Guardian Understands and Agrees with Anesthesia Plan: Yes PreAnesthesia Questionnaire - Past Health History Medical/Surgical History: Denies Medical/Surgical History HEENT History: Reports: Impaired Vision Genitourinary History: Reports: None 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 [No Known Home Meds] 06/07/18 [History] - CURRENT (IN HOUSE) MEDS Current Meds: Current Medications Carboprost Tromethamine (Hemabate Ds) 250 mcg IM ASDIRECTED PRN PRN Reason: Post Hemorrhage Lactated Ringer's (Ringers, Lactated) 1,000 mls @ 150 mls/hr IV ASDIRECTED ARELY Last Admin: 02/01/19 21:11 Dose: 999 mls/hr Oxytocin/Sodium Chloride (Oxytocin 30 Unit/500 Ml-Ns) 30 unit in 500 mls @ 999 mls/hr IV TITRATE ARELY Oxytocin/Sodium Chloride (Oxytocin 30 Unit/500 Ml-Ns) 30 unit in 500 mls @ 2 mls/hr IV TITRATE ARELY; Protocol Last Admin: 02/01/19 18:23 Dose: 2 munits/min, 2 mls/hr Tranexamic Acid 1,000 mg/ (Sodium Chloride) 110 mls @ 660 mls/hr IV ONETIME PRN PRN Reason: Bleeding Lidocaine HCl (Xylocaine 1%) 50 ml INJECT ONETIME PRN PRN Reason: Laceration repair Methylergonovine Maleate (Methergine) 0.2 mg IM ASDIRECTED PRN PRN Reason: Post Hemorrhage Misoprostol (Cytotec) 200 mcg PO ONETIME PRN PRN Reason: Post Hemorrhage Misoprostol (Cytotec) 25 mcg VAG Q4H PRN PRN Reason: Cervical Ripening Last Admin: 02/01/19 11:27 Dose: 25 mcg Misoprostol (Cytotec) 25 mcg PO Q4H PRN PRN Reason: Cervical Ripening Last Admin: 02/01/19 11:26 Dose: 25 mcg Nalbuphine HCl (Nubain) 10 mg IVPUSH Q1H PRN PRN Reason: Pain (severe 7-10) Last Admin: 02/01/19 19:45 Dose: 10 mg Ondansetron HCl (Zofran) 4 mg IV Q6H PRN PRN Reason: Nausea/Vomiting Sodium Chloride (Saline Flush) 10 ml FLUSH ASDIRECTED PRN PRN Reason: Keep Vein Open Sodium Chloride (Saline Flush) 2.5 ml FLUSH ASDIRECTED PRN PRN Reason: Keep Vein Open Sodium Chloride (Normal Saline) 10 ml IV ASDIRECTED PRN PRN Reason: IV Use Sterile Water (Sterile Water For Irrigation) 1,000 ml IRR ASDIRECTED PRN PRN Reason: delivery Terbutaline Sulfate (Brethine) 0.25 mg SUBCUT ASDIRECTED PRN PRN Reason: Tacysystole Discontinued Medications Ropivacaine (Naropin 0.2%) Confirm Administered Dose 100 mls @ as directed .ROUTE .[employer] ONE Stop: 02/01/19 20:59
--- NOTE | 2019-02-01 21:23 | PCM.PRNOTE ---
- Free Text/Narrative Note: Anes Note Patient requests epidural for L&D. Sitting position. Level L3-L4, midline approach. Sterile technique. Chloro prep to lumbar area. Sterile fenestrated drape applied. Local 1% lido. #17 x 3 7/8 tuohy needle. Epidural space easily achieved single attempt with ease using KARI technique. Cath threaded 4 cm with ease. Sterile dressing applied. Test rodriguez 2006 3 cc 1.5% lido with epi negative. Loading dose 2009 10 cc 0.2% ropivicaine in slow divided doses. Pump 2113 started with same solution at 8 cc hr with 6 cc q 20 min prn bolus. Keiry well. Patiet reports excellent analgesia. 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
[2019-02-01] MEDS ORDERED: Docusate Sodium 100 MG Cap PO PRN (21:42)
[2019-02-01] MEDS ORDERED: Benzocaine/Menthol 20%-0.5% Spray 78 GM Cannister TOP PRN (21:42)
[2019-02-01] MEDS ORDERED: oxyCODONE 5 MG Tab PO PRN (21:42)
[2019-02-01] MEDS ORDERED: Ibuprofen 400 MG Tab PO PRN (21:42)
[2019-02-01] MEDS ORDERED: Lanolin 100% Cream 7 GM Tube TOP PRN (21:42)
[2019-02-01] MEDS ORDERED: Bisacodyl 10 MG Supp RECTAL PRN (21:42)
[2019-02-01] MEDS ORDERED: Witch Hazel Medicated Pads 40/Jar TOP PRN (21:42)
[2019-02-01] MEDS ORDERED: Acetaminophen 500 MG Tab PO PRN (21:42)
--- NOTE | 2019-02-01 22:42 | OR ---
SURGEON: Marc Carter MD DATE OF PROCEDURE: Ms. Parnell is a 28. She is para 4-0-0-4. She is followed in our clinic primarily by our nurse curator, Noris Thomason. She is admitted for elective induction. At the time of admission, she was 3 to 4 cm. She is having mild contractions. Her GBS status was negative. She was started on Cytotec. She responded to that. She progressed to 4. I did an artificial rupture of the membrane of clear fluid. She required Pitocin augmentation. She had epidural anesthesia for labor analgesia, and she was able to go to complete-complete and accomplished normal spontaneous vaginal delivery. Intact perineum. There was no vaginal or labial laceration. Fetus was male, cried immediately. score reported to be 8 and 9. The placenta delivered manually without any problem. Estimated blood loss is 350 to 400 mL. heart rate was category 1 through the entire process of labor. There was no complication. CHRISTOPH / CARLOS /[id number]
[2019-02-02] MEDS: Acetaminophen 500 MG Tab PO PRN ×2 (05:32→22:15)
[2019-02-02] MEDS: Ibuprofen 800 MG Tab PO PRN ×2 (05:33→19:41)
--- NOTE | 2019-02-02 07:41 | PCM.POSTAN ---
POST ANESTHESIA ASSESSMENT - MENTAL STATUS Mental Status: Alert, Oriented - RESPIRATORY Respiratory Status: Respiratory Rate WNL - CARDIOVASCULAR CV Status: Pulse Rate WNL - POST OP HYDRATION Hydration Status: Adequate & Stable
--- NOTE | 2019-02-02 07:42 | PCM48HPAN ---
Post Anesthesia Note - EVALUATION WITHIN 48HRS OF ANESTHETIC Vital Signs in Normal Range: Yes Patient Participated in Evaluation: Yes Respiratory Function Stable: Yes Airway Patent: Yes Cardiovascular Function Stable: Yes Hydration Status Stable: Yes Pain Control Satisfactory: Yes Nausea and Vomiting Control Satisfactory: Yes Mental Status Recovered: Yes
--- NOTE | 2019-02-02 10:56 | PCM.PNPP ---
- General Info Date of Service: 02/02/19 Functional Status: Reports: Pain Controlled - Review of Systems General: Reports: No Symptoms HEENT: Reports: No Symptoms Pulmonary: Reports: No Symptoms Cardiovascular: Reports: No Symptoms Gastrointestinal: Reports: No Symptoms Genitourinary: Reports: No Symptoms Musculoskeletal: Reports: No Symptoms Skin: Reports: No Symptoms Neurological: Reports: No Symptoms Psychiatric: Reports: No Symptoms - General Info Date of Service: 02/02/19 - Patient Data Vital Signs - Most Recent: Last Vital Signs Temp 36.3 C 02/02/19 07:38 Pulse 82 02/02/19 07:38 Resp 16 02/02/19 07:38 BP 107/64 02/02/19 07:38 Pulse Ox 98 02/02/19 07:38 Weight - Most Recent: 81.193 kg Lab Results - Last 24 Hours: Laboratory Results - last 24 hr 02/01/19 02/01/19 02/02/19 Range/Units 10:56 10:56 06:03 WBC 11.54 H (4.0-11.0) K/uL RBC 4.48 (4.30-5.90) M/uL Hgb 9.8 L 9.9 L (12.0-16.0) g/dL Hct 31.0 L 31.3 L (36.0-46.0) % MCV 69.2 L (80.0-98.0) fL MCH 21.9 L (27.0-32.0) pg MCHC 31.6 (31.0-37.0) g/dL RDW Std Deviation 44.6 (28.0-62.0) fl RDW Coeff of Alyssa 18 H (11.0-15.0) % Plt Count 313 (150-400) K/uL MPV 10.30 (7.40-12.00) fL Nucleated RBC % 0.1 /100WBC Nucleated RBCs # 0 K/uL Blood Type O POSITIVE Antibody Screen NEGATIVE Med Orders - Current: Current Medications Acetaminophen (Tylenol Extra Strength) 500 mg PO Q4H PRN PRN Reason: Pain Acetaminophen (Tylenol Extra Strength) 1,000 mg PO Q4H PRN PRN Reason: Pain Last Admin: 02/02/19 05:32 Dose: 1,000 mg Benzocaine/Menthol (Dermoplast Pain Relief 20%-0.5% [place]) 78 gm TOP ASDIRECTED PRN PRN Reason: Perineal Comfort Measure Bisacodyl (Dulcolax) 10 mg RECTAL ONETIME PRN PRN Reason: Constipation Carboprost Tromethamine (Hemabate Ds) 250 mcg IM ASDIRECTED PRN PRN Reason: Post Hemorrhage Docusate Sodium (Colace) 100 mg PO BID PRN PRN Reason: Constipation Emollient Ointment (Lansinoh Hpa) 0 gm TOP ASDIRECTED PRN PRN Reason: Sore Nipples Lactated Ringer's (Ringers, Lactated) 1,000 mls @ 150 mls/hr IV ASDIRECTED ARELY Last Admin: 02/01/19 21:11 Dose: 999 mls/hr Oxytocin/Sodium Chloride (Oxytocin 30 Unit/500 Ml-Ns) 30 unit in 500 mls @ 999 mls/hr IV TITRATE ARELY Oxytocin/Sodium Chloride (Oxytocin 30 Unit/500 Ml-Ns) 30 unit in 500 mls @ 2 mls/hr IV TITRATE ARELY; Protocol Last Admin: 02/01/19 18:23 Dose: 2 munits/min, 2 mls/hr Tranexamic Acid 1,000 mg/ (Sodium Chloride) 110 mls @ 660 mls/hr IV ONETIME PRN PRN Reason: Bleeding Ibuprofen (Motrin) 400 mg PO Q4H PRN PRN Reason: Pain Ibuprofen (Motrin) 800 mg PO Q6H PRN PRN Reason: Pain Last Admin: 02/02/19 05:33 Dose: 800 mg Lidocaine HCl (Xylocaine 1%) 50 ml INJECT ONETIME PRN PRN Reason: Laceration repair Methylergonovine Maleate (Methergine) 0.2 mg IM ASDIRECTED PRN PRN Reason: Post Hemorrhage Misoprostol (Cytotec) 200 mcg PO ONETIME PRN PRN Reason: Post Hemorrhage Misoprostol (Cytotec) 25 mcg VAG Q4H PRN PRN Reason: Cervical Ripening Last Admin: 02/01/19 11:27 Dose: 25 mcg Misoprostol (Cytotec) 25 mcg PO Q4H PRN PRN Reason: Cervical Ripening Last Admin: 02/01/19 11:26 Dose: 25 mcg Nalbuphine HCl (Nubain) 10 mg IVPUSH Q1H PRN PRN Reason: Pain (severe 7-10) Last Admin: 02/01/19 19:45 Dose: 10 mg Ondansetron HCl (Zofran) 4 mg IV Q6H PRN PRN Reason: Nausea/Vomiting Oxycodone HCl (Oxycodone) 5 mg PO Q2H PRN PRN Reason: Pain Sodium Chloride (Saline Flush) 10 ml FLUSH ASDIRECTED PRN PRN Reason: Keep Vein Open Sodium Chloride (Saline Flush) 2.5 ml FLUSH ASDIRECTED PRN PRN Reason: Keep Vein Open Sodium Chloride (Normal Saline) 10 ml IV ASDIRECTED PRN PRN Reason: IV Use Sterile Water (Sterile Water For Irrigation) 1,000 ml IRR ASDIRECTED PRN PRN Reason: delivery Terbutaline Sulfate (Brethine) 0.25 mg SUBCUT ASDIRECTED PRN PRN Reason: Tacysystole Witch Brigid (Tucks) 1 pad TOP ASDIRECTED PRN PRN Reason: comfort care Discontinued Medications Ropivacaine (Naropin 0.2%) Confirm Administered Dose 100 mls @ as directed .ROUTE .STK-MED ONE Stop: 02/01/19 20:59 Last Admin: 02/02/19 07:31 Dose: Not Given - Infant Interaction Disposition, : in Room with Family Infant Interaction: Holding Infant Feeding: Bottle Fed Infant Support Person: Significant Other - Recovery Exam Fundal Tone: Firm Fundal Level: 2 Fingerbreadths Below Umbilicus Fundal Placement: Midline Lochia Amount: Scant Lochia Color: Rubra/Red Perineum Description: Intact, Minimal Bruising/Swelling Episiotomy/Laceration: Approximated Bladder Status: Voiding - Exam General: Alert, Oriented HEENT: Pupils Equal Neck: Supple Lungs: Clear to Auscultation, Normal Respiratory Effort Cardiovascular: Regular Rate, Regular Rhythm GI/Abdominal Exam: Normal Bowel Sounds, Soft, Non-Tender, No Organomegaly, No Distention, No Abnormal Bruit, No Mass, Pelvis Stable Extremities: Normal Inspection, Normal Range of Motion, Non-Tender, No Pedal Edema, Normal Capillary Refill Skin: Warm, Dry, Intact Wound/Incisions: Healing Well Neurological: No New Focal Deficit Psy/Mental Status: Alert, Normal Affect, Normal Mood - Problem List Review Problem List Initiated/Reviewed/Updated: Yes - My Orders Last 24 Hours: My Active Orders 02/01/19 21:42 Patient Status [ADT] Routine May Shower [RC] ASDIRECTED Up ad Yina [RC] ASDIRECTED Vital Signs [RC] PER UNIT ROUTINE Acetaminophen [Tylenol Extra Strength] 1,000 mg PO Q4H PRN Acetaminophen [Tylenol Extra Strength] 500 mg PO Q4H PRN Benzocaine/Menthol [Dermoplast Pain Relief 20%-0.5% [place]] 78 gm TOP ASDIRECTED PRN Bisacodyl [Dulcolax] 10 mg RECTAL ONETIME PRN Docusate Sodium [Colace] 100 mg PO BID PRN Ibuprofen [Motrin] 400 mg PO Q4H PRN Ibuprofen [Motrin] 800 mg PO Q6H PRN Lanolin [Lansinoh HPA] See Dose Instructions TOP ASDIRECTED PRN Witch Brigid [Tucks] 1 pad TOP ASDIRECTED PRN oxyCODONE 5 mg PO Q2H PRN Assess Lochia [WOMSER] Per Unit Routine Assess Uterine Involution [WOMSER] Per Unit Routine Peripheral IV Discontinue [OM.PC] Routine - Assessment Assessment:: S/P going home.
--- NOTE | 2019-02-03 08:26 | PCM.PNPP ---
- General Info Date of Service: 02/03/19 Functional Status: Reports: Pain Controlled - Review of Systems General: Reports: No Symptoms HEENT: Reports: No Symptoms Pulmonary: Reports: No Symptoms Cardiovascular: Reports: No Symptoms Gastrointestinal: Reports: No Symptoms Genitourinary: Reports: No Symptoms Musculoskeletal: Reports: No Symptoms Skin: Reports: No Symptoms Neurological: Reports: No Symptoms Psychiatric: Reports: No Symptoms - General Info Date of Service: 02/03/19 - Patient Data Vital Signs - Most Recent: Last Vital Signs Temp 37.2 C 02/03/19 08:02 Pulse 77 02/03/19 08:02 Resp 15 02/03/19 08:02 BP 103/53 L 02/03/19 08:02 Pulse Ox 99 02/03/19 08:02 Weight - Most Recent: 81.193 kg Med Orders - Current: Current Medications Acetaminophen (Tylenol Extra Strength) 500 mg PO Q4H PRN PRN Reason: Pain Acetaminophen (Tylenol Extra Strength) 1,000 mg PO Q4H PRN PRN Reason: Pain Last Admin: 02/02/19 22:15 Dose: 1,000 mg Benzocaine/Menthol (Dermoplast Pain Relief 20%-0.5% [place]) 78 gm TOP ASDIRECTED PRN PRN Reason: Perineal Comfort Measure Bisacodyl (Dulcolax) 10 mg RECTAL ONETIME PRN PRN Reason: Constipation Carboprost Tromethamine (Hemabate Ds) 250 mcg IM ASDIRECTED PRN PRN Reason: Post Hemorrhage Docusate Sodium (Colace) 100 mg PO BID PRN PRN Reason: Constipation Emollient Ointment (Lansinoh Hpa) 0 gm TOP ASDIRECTED PRN PRN Reason: Sore Nipples Lactated Ringer's (Ringers, Lactated) 1,000 mls @ 150 mls/hr IV ASDIRECTED ARELY Last Admin: 02/01/19 21:11 Dose: 999 mls/hr Oxytocin/Sodium Chloride (Oxytocin 30 Unit/500 Ml-Ns) 30 unit in 500 mls @ 999 mls/hr IV TITRATE ARELY Oxytocin/Sodium Chloride (Oxytocin 30 Unit/500 Ml-Ns) 30 unit in 500 mls @ 2 mls/hr IV TITRATE ARELY; Protocol Last Admin: 02/01/19 18:23 Dose: 2 munits/min, 2 mls/hr Tranexamic Acid 1,000 mg/ (Sodium Chloride) 110 mls @ 660 mls/hr IV ONETIME PRN PRN Reason: Bleeding Ibuprofen (Motrin) 400 mg PO Q4H PRN PRN Reason: Pain Ibuprofen (Motrin) 800 mg PO Q6H PRN PRN Reason: Pain Last Admin: 02/02/19 19:41 Dose: 800 mg Lidocaine HCl (Xylocaine 1%) 50 ml INJECT ONETIME PRN PRN Reason: Laceration repair Methylergonovine Maleate (Methergine) 0.2 mg IM ASDIRECTED PRN PRN Reason: Post Hemorrhage Misoprostol (Cytotec) 200 mcg PO ONETIME PRN PRN Reason: Post Hemorrhage Misoprostol (Cytotec) 25 mcg VAG Q4H PRN PRN Reason: Cervical Ripening Last Admin: 02/01/19 11:27 Dose: 25 mcg Misoprostol (Cytotec) 25 mcg PO Q4H PRN PRN Reason: Cervical Ripening Last Admin: 02/01/19 11:26 Dose: 25 mcg Nalbuphine HCl (Nubain) 10 mg IVPUSH Q1H PRN PRN Reason: Pain (severe 7-10) Last Admin: 02/01/19 19:45 Dose: 10 mg Ondansetron HCl (Zofran) 4 mg IV Q6H PRN PRN Reason: Nausea/Vomiting Oxycodone HCl (Oxycodone) 5 mg PO Q2H PRN PRN Reason: Pain Sodium Chloride (Saline Flush) 10 ml FLUSH ASDIRECTED PRN PRN Reason: Keep Vein Open Sodium Chloride (Saline Flush) 2.5 ml FLUSH ASDIRECTED PRN PRN Reason: Keep Vein Open Sodium Chloride (Normal Saline) 10 ml IV ASDIRECTED PRN PRN Reason: IV Use Sterile Water (Sterile Water For Irrigation) 1,000 ml IRR ASDIRECTED PRN PRN Reason: delivery Terbutaline Sulfate (Brethine) 0.25 mg SUBCUT ASDIRECTED PRN PRN Reason: Tacysystole Witch Brigid (Tucks) 1 pad TOP ASDIRECTED PRN PRN Reason: comfort care Discontinued Medications Ropivacaine (Naropin 0.2%) Confirm Administered Dose 100 mls @ as directed .ROUTE .STK-MED ONE Stop: 02/01/19 20:59 Last Admin: 02/02/19 07:31 Dose: Not Given - Infant Interaction Infant Disposition, : [place] in Room with Family Interaction: Holding Infant Feeding: Bottle Fed Infant Support Person: Significant Other - Recovery Exam Fundal Tone: Firm Fundal Level: 1 Fingerbreadths Below Umbilicus Fundal Placement: Midline Lochia Amount: Scant Lochia Color: Rubra/Red Perineum Description: Intact, Minimal Bruising/Swelling Episiotomy/Laceration: None Bladder Status: Voiding Urinary Elimination: Voided - Exam General: Alert, Oriented HEENT: Pupils Equal Neck: Supple Lungs: Clear to Auscultation, Normal Respiratory Effort Cardiovascular: Regular Rate, Regular Rhythm GI/Abdominal Exam: Normal Bowel Sounds, Soft, Non-Tender, No Organomegaly, No Distention, No Abnormal Bruit, No Mass, Pelvis Stable Extremities: Normal Inspection, Normal Range of Motion, Non-Tender, No Pedal Edema, Normal Capillary Refill Skin: Warm, Dry, Intact Wound/Incisions: Healing Well Neurological: No New Focal Deficit Psy/Mental Status: Alert, Normal Affect, Normal Mood - Problem List Review Problem List Initiated/Reviewed/Updated: Yes - My Orders Last 24 Hours: My Active Orders 02/02/19 10:58 Ready for Discharge [RC] PER UNIT ROUTINE - Assessment Assessment:: S/P going home.
[2019-02-03] MEDS: Ibuprofen 800 MG Tab PO PRN ×2 (09:41→18:38)
[2019-02-03 16:38] VITALS: BP 92/53
== END 2019-02-03 18:35 | disposition home or self-care (01) | DRG 807 ==
LOC: MW.OB 09:55 → OBSVTOIN 21:32 → MW.OB 23:38
PROVIDERS: ADMIT Obstetrics & Gynecology; ATTEND Obstetrics & Gynecology
PROC: 10E0XZZ Delivery of Products of Conception, External Approach (ICD-10-PCS; principal; 2019-02-01)
PROC: 10907ZC Drainage of Amniotic Fluid, Therapeutic from Products of Conception, Via Natural or Artificial Opening (ICD-10-PCS; 2019-02-01)
PROC: 3E0P7VZ Introduction of Hormone into Female Reproductive, Via Natural or Artificial Opening (ICD-10-PCS; 2019-02-01)
PROC: 3E0R3BZ Introduction of Anesthetic Agent into Spinal Canal, Percutaneous Approach (ICD-10-PCS; 2019-02-01)
DX: O80 Encounter for full-term uncomplicated delivery (principal); Z37.0 Single live birth; Z3A.38 38 weeks gestation of pregnancy
CPT/HCPCS: 36415; 59025; 59409; 85014; 85018; 85027; 86850; 86900; 86901; A9270-GY; J2300; J2590; J7120

== ENCOUNTER 2020-06-05 12:25 | Emergency (ER) | payer MEDICAID ==
--- NOTE | 2020-06-05 12:31 | EDM.PDOC ---
ED HPI GENERAL MEDICAL PROBLEM - General Stated Complaint: FEMALE DISCHARGE Time Seen by Provider: 06/05/20 12:26 Source of Information: Reports: Patient History Limitations: Reports: No Limitations - History of Present Illness INITIAL COMMENTS - FREE TEXT/NARRATIVE: HISTORY AND PHYSICAL: History of present illness: Patient is a 30-year-old female who presents to the emergency room with complaints of vaginal discharge and odor over the past few days. She states she took a test approximately 2 weeks ago she was a few days late on her menses, this was positive. She states a day later she had her period for approximately 1 week. She believes she miscarried at 4 weeks gestation. Over the past few days she has noticed a foul white odor/discharge from her vagina. Patient denies any fever, chills, headache, change in vision, syncope or near syncope. Denies any chest pain, back pain, shortness of breath or cough. Denies any abdominal pain, nausea, vomiting, diarrhea, constipation or dysuria. Has not noted any blood in urine or stool. Patient has been eating and drinking appropriately. Review of systems: As per history of present illness and below otherwise all systems reviewed and negative. Past medical history: As per history of present illness and as reviewed below otherwise noncontributory. Surgical history: As per history of present illness and as reviewed below otherwise noncontributory. Social history: See social history for further information Family history: As per history of present illness and as reviewed below otherwise noncontributory. Physical exam: General: Well developed and well nourished. Alert and orientated x 3. Nontoxic in appearance and in no acute distress. Vital signs are stable and have been reviewed by me. Nursing notes were reviewed. HEENT: Atraumatic, normocephalic, pupils equal and reactive bilaterally, negative for conjunctival pallor or scleral icterus, mucous membranes moist, TMs normal bilaterally, throat clear, neck supple, nontender, trachea midline. No drooling or trismus noted. No meningeal signs. No hot potato voice noted. Lungs: Clear to auscultation, breath sounds equal bilaterally. Normal work of breathing, no accessory muscles used. Heart: S1S2, regular rate and rhythm without overt murmur Abdomen: Soft, nondistended, nontender. Negative for masses or hepatosplenomegaly. Negative for costovertebral tenderness. Pelvis: Stable nontender. Genitourinary: This was done with consent and a chaparone at the bedside. Normal appearing external genitalia. There is moderate amount of white discharge in the vaginal vault, samples sent to lab. No cervical motion tenderness. Tolerated speculum exam well. Skin: Intact, warm, dry. No lesions or rashes noted. Hematologic: No petechiae or purpra. Mucosa appropriate color and normal nail bed color and refill. Extremities: Atraumatic, moves all extremities per self without difficulty or deficits, negative for cords or calf pain. Neurovascular unremarkable. Neuro: Awake, alert, oriented. Cranial nerves II through XII unremarkable. Cerebellum unremarkable. Motor and sensory unremarkable throughout. Exam nonfocal. Psychiatric: Mood and affect are appropriate. Normal thought process. Answering questions appropriately. Notes: Urine is negative. She does have a UTI along with Gardnerella. Initial dose of medications given here. I have spoken with the patient/caregiver and discussed today's findings, in addition to providing specific details for plan of care. Reassessment at the time of disposition demonstrates that the patient is in no acute distress. Patient is stable for discharge, counseling was provided and we discussed in great detail signs and symptoms that would prompt them to return to the Emergency Department. Medication, follow up and supportive care measures were reviewed and discussed. Voices understanding and is agreeable to plan of care. Denies any further questions or concerns at this time. Diagnostics: UA, HCGU, Juan Miguel/Chlamydia, ALISHA Therapeutics: Macrobid, Flagyl Prescription: Macrobid, Flagyl Impression: UTI BV Plan: See down-time form Definitive disposition and diagnosis as appropriate pending reevaluation and review of above. - Related Data Allergies Allergy/AdvReac Type Severity Reaction Status Date / Time No Known Allergies Allergy Verified 02/01/19 10:20 Home Meds: Home Meds . [No Known Home Meds] 06/07/18 [History] Past Medical History - Past Health History Medical/Surgical History: Denies Medical/Surgical History HEENT History: Reports: Impaired Vision Genitourinary History: Reports: None [employer] History: Reports: , Spontaneous Hematologic History: Reports: Anemia - Infectious Disease History Infectious Disease History: Reports: None - Past Surgical History Head Surgeries/Procedures: Reports: None Female Surgical History: Reports: D&C Social & Family History - Family History Family Medical History: Noncontributory Cardiac: Reports: Hypertension OBGYN: Reports: Endocrine/Metabolic: Reports: Diabetes, type II Oncologic: Reports: Breast, Lung - Caffeine Use Caffeine Use: Reports: None ED ROS GENERAL - Review of Systems Review Of Systems: Comprehensive ROS is negative, except as noted in HPI. ED EXAM, GENERAL - Physical Exam Exam: See Below (See dictation) Course - Orders/Labs/Meds Orders: Active Orders 24 hr Category Date Time Status CHLAMYDIA AND GONORRHEA BY TMA Stat Lab 06/05/20 12:26 Ordered HCG QUALITATIVE,URINE [URCHEM] Stat Lab 06/05/20 12:26 Ordered TRICH/SIMEON/CAND BY DNA PROBE [MOLEC] Stat Lab 06/05/20 12:26 Ordered UA RFX MALGORZATA AND CULT IF INDIC [URIN] Stat Lab 06/05/20 12:26 Ordered Departure - Departure Time of Disposition: 14:59 Disposition: Home, Self-Care 01 Clinical Impression: UTI, Urinary tract infectious disease, Bacterial vaginosis - Discharge Information - My Orders Last 24 Hours: My Active Orders 06/05/20 12:26 CHLAMYDIA AND GONORRHEA BY TMA Stat HCG QUALITATIVE,URINE [URCHEM] Stat TRICH/SIMEON/CAND BY DNA PROBE [MOLEC] Stat UA RFX MALGORZATA AND CULT IF INDIC [URIN] Stat - Assessment/Plan Last 24 Hours: My Active Orders 06/05/20 12:26 CHLAMYDIA AND GONORRHEA BY TMA Stat HCG QUALITATIVE,URINE [URCHEM] Stat TRICH/SIMEON/CAND BY DNA PROBE [MOLEC] Stat UA RFX MALGORZATA AND CULT IF INDIC [URIN] Stat
[2020-06-05] MEDS ORDERED: Nitrofurantoin Monohydrate/Macrocrystalline 100 MG Cap PO ONE (14:04)
[2020-06-05] MEDS ORDERED: metroNIDAZOLE 250 MG Tab PO ONE (14:05)
[2020-06-05] MEDS ORDERED: metroNIDAZOLE 250 MG Tab ONE (14:14)
[2020-06-05] MEDS ORDERED: Nitrofurantoin Monohydrate/Macrocrystalline 100 MG Cap ONE (14:14)
[2020-06-05 15:19] VITALS: BP 117/75; PULSE 80
[2020-06-08 14:07] LABS: C.TRACHOMATIS BY TMA Negative (Negative); N.GONORRHOEAE BY TMA Negative (Negative)
== END 2020-06-05 14:07 | disposition home or self-care (01) ==
LOC: MW.ED 12:25
DX: N76.0 Acute vaginitis (principal); N39.0 Urinary tract infection, site not specified
CPT/HCPCS: 81001; 81003; 81025; 87086; 87480; 87491; 87510; 87591; 87660; 99283; A9270

== ENCOUNTER 2022-03-25 10:36 | Emergency (ER) | payer MEDICAID ==
[2022-03-25 11:01] VITALS: BP 113/71
[2022-03-25 13:08] VITALS: PULSE 81
[2022-03-25 13:21] LABS: C. TRACHOMATIS BY PCR NOT DETECTED; N. GONORRHOEAE BY PCR NOT DETECTED
== END 2022-03-25 13:08 | disposition home or self-care (01) ==
LOC: MW.ED 10:36
DX: N93.9 Abnormal uterine and vaginal bleeding, unspecified (principal); N76.0 Acute vaginitis; B96.89 Other specified bacterial agents as the cause of diseases classified elsewhere
CPT/HCPCS: 81003; 81025; 87480; 87491; 87510; 87591; 87660; 99283; 99284

== ENCOUNTER 2022-09-10 10:57 | Emergency (ER) | payer MEDICAID ==
[2022-09-10] MEDS ORDERED: Ondansetron 4 MG/2 ML SDV IVPUSH ONE (11:10)
[2022-09-10] MEDS ORDERED: Ketorolac 30 MG/ML SDV IVPUSH ONE (11:10)
[2022-09-10] MEDS ORDERED: Sodium Chloride 0.9% 1,000 ML IV ONE (11:10)
[2022-09-10 11:43] LABS: CARBON DIOXIDE,CO2 29.9 mmol/L (21.0-32.0); POTASSIUM,K 3.4 mmol/L (3.5-5.1)
[2022-09-10 13:17] VITALS: BP 98/54; PULSE 81
== END 2022-09-10 13:16 | disposition home or self-care (01) ==
LOC: MW.ED 10:57
DX: K52.9 Noninfective gastroenteritis and colitis, unspecified (principal); D64.9 Anemia, unspecified
CPT/HCPCS: 36415; 80053; 81001; 81025; 83690; 85025; 87045; 87046; 87086; 87324; 87328; 87329; 87449; 87899; 96361; 96374; 96375; 99284; J1885; J2405; J7030